=== PATIENT | male | born 1970 | race Caucasian/White ===

== ENCOUNTER 2017-02-11 12:22 | Inpatient (IN) | payer OTHER ==
[2017-02-11 16:13] VITALS: BMI 20.3
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
[2017-02-11] MEDS ORDERED: MAG HYDROX/AL HYDROX/SIMETH 30 ML UNIT-DOSE CUP PO PRN (16:49)
[2017-02-11] MEDS ORDERED: hydrOXYzine PAMOATE 50 MG CAPSULE (FP) PO PRN (16:49)
[2017-02-11] MEDS ORDERED: guaiFENesin/D-METHORPHAN HB 10 ML UNIT-DOSE CUPS PO PRN (16:49)
[2017-02-11] MEDS ORDERED: MAGNESIUM HYDROX 2400MG/30ML ORAL SUSPENSION 30 ML CUP PO PRN (16:49)
[2017-02-11] MEDS ORDERED: IBUPROFEN 400 MG TABLET (FP) PO PRN (16:49)
[2017-02-11] MEDS ORDERED: MENTHOL/PHENOL 1 EACH UD MM PRN (16:49)
[2017-02-11] MEDS ORDERED: P-EPHED 60MG/TRIPROLIDI 2.5MG TABLET PO PRN (16:49)
[2017-02-11] MEDS ORDERED: LOPERAMIDE HCL 2 MG CAPSULE PO PRN (16:49)
[2017-02-11] MEDS ORDERED: NICOTINE POLACRILEX 2 MG GUM BC PRN (16:49)
[2017-02-11] MEDS ORDERED: ACETAMINOPHEN 325 MG TABLET (FP) PO PRN (16:49)
[2017-02-11] MEDS ORDERED: MAGNESIUM CITRATE 300 ML BOTTLE PO PRN (16:49)
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
[2017-02-11] MEDS ORDERED: LOPERAMIDE HCL 2 MG CAPSULE PO ONE (19:00)
[2017-02-11] MEDS ORDERED: diazePAM 5 MG TABLET PO ONE (19:00)
[2017-02-11] MEDS: NICOTINE 14 MG/24 HOURS TOPICAL PATCH TD SCH (19:17)
[2017-02-11] MEDS: THIAMINE HCL 100 MG TABLET (FP) PO SCH (22:16)
[2017-02-11] MEDS: traZODone HCL 100 MG TABLET (FP) PO SCH (22:16)
[2017-02-11] MEDS: levETIRAcetam 500 MG TABLET (FP) PO SCH (22:16)
[2017-02-11] MEDS: diazePAM 5 MG TABLET PO SCH (22:16)
[2017-02-11 22:45] LABS: URINE APPEARANCE CLEAR; URINE BILIRUBIN NEGATIVE (NEGATIVE); URINE BLOOD NEGATIVE (NEGATIVE); URINE COLOR LTYELLOW; URINE GLUCOSE (UA) NEGATIVE (NEGATIVE); URINE KETONE NEGATIVE (NEGATIVE); URINE NITRITE NEGATIVE (NEGATIVE); URINE PROTEIN NEGATIVE (NEGATIVE); URINE UROBILINOGEN NEGATIVE mg/dL (0.2-1.0)
[2017-02-12] MEDS: diazePAM 5 MG TABLET PO SCH ×3 (05:47→22:31)
--- NOTE | 2017-02-12 08:42 | CONSULT ---
[facility] Psychiatric Consult - Data Date of interview: 02/12/17 Admission source: [facility] Identifying data: This is 46 years old male with history of psychiatric hospitalizations, history of Bipolar disorder, intoxicated with: \Alcohol, Benzodiazeoins, Nicotine, hiustory of Cocaine abuse as well Substance Abuse History: Smoking history: Current every day smoker. Have you smoked in the past 12 months: Yes. Aproximately how many cigarettes per day: 20. Hx Chewing Tobacco Use: No. Initiated information on smoking cessation: Yes. 'Breaking Loose' booklet given: 02/11/17. - Substance & Tx. History. Hx Alcohol Use: Yes. Substance Use Type: Alcohol. Hx Substance Use Treatment: Yes ([facility] - Substances Abused. Alcohol. Route: Oral. Frequency: Daily. Amount used: 8 25oz malt liquor. Age of first use: 22. Date of Last Use: 02/10/17 Medical History: Falk;s Palsy history Psychiatric History: Patient reports history of Bop[ilar Disorder, unclear psychiatric admission 1-2 weeks ago at [facility] , reports taking prior to admsision: Trazodone 100mg po qhs. Zoloft 50mg poqd. [place]ote 250mg po bid Physical/Sexual Abuse/Trauma History: Denies Additional Comment: Trazodone 100mg po qhs. Zoloft 50mg poqd. [place]ote 250mg po bid Mental Status Exam - Mental Status Exam Alert and Oriented to: Person Cognitive Function: Fair Patient Appearance: Unkempt Mood: Sad Affect: Flat Patient Behavior: Sedated Speech Pattern: Delayed Voice Loudness: Mildly Soft/Quiet Thought Process: Circumstantial Thought Disorder: Being Controlled Hallucinations: Denies Suicidal Ideation: Denies Homicidal Ideation: Denies Insight/Judgement: Fair Sleep: Difficulty falling asleep Appetite: Fair Muscle strength/Tone: Mild Hypotonicity Gait/Station: Shuffling Additional Comments: Trazodone 100mg po qhs. Zoloft 50mg poqd. [place]ote 250mg po bid Psychiatric Findings - Problem List ([place] 1, 2,3) (1) Alcohol dependence with uncomplicated withdrawal Current Visit: No Status: Acute (2) Cocaine dependence Current Visit: No Status: Acute Qualifiers: Substance use status: in remission Qualified Code(s): F14.21 - Cocaine dependence, in remission (3) Drug-induced mood disorder Current Visit: No Status: Acute (4) Marijuana abuse Current Visit: No Status: Acute (5) Bipolar disorder Current Visit: No Status: Chronic (6) Cocaine abuse Current Visit: No Status: Chronic (7) Cannabis dependence, uncomplicated Current Visit: No Status: Inactive - Initial Treatment Plan Initial Treatment Plan: Trazodone 100mg po qhs. Zoloft 50mg poqd. [place]ote 250mg po bid
[2017-02-12 10:06] LABS: BASOPHIL 0.3 % (0-2.0); MCH 33.1 pg (25.7-33.7); WHITE BLOOD COUNT 7.5 K/mm3 (4.0-10.0)
[2017-02-12 10:09] LABS: EOSINOPHIL 3.5 % (0-4.5); MEAN CELL VOLUME 100.4 fl (80-96); MEAN PLT VOLUME 8.1 fl (7.5-11.1); PLATELET COUNT 335 K/MM3 (134-434); RDW 12.9 % (11.9-15.9)
[2017-02-12] MEDS: NICOTINE 14 MG/24 HOURS TOPICAL PATCH TD SCH (10:44)
[2017-02-12] MEDS: DIVALPROEX SODIUM 250 MG TABLET E.C. (FP) PO SCH ×2 (10:44→22:31)
[2017-02-12] MEDS: levETIRAcetam 500 MG TABLET (FP) PO SCH ×2 (10:44→22:31)
[2017-02-12] MEDS: PRENATAL VITAMINS W/ FOLIC ACID TABLET (FP) PO SCH (10:44)
[2017-02-12 11:40] LABS: ALBUMIN 2.8 g/dl (3.4-5.0); ALK PHOS 53 U/L (45-117); ANION GAP 10 (8-16); BILIRUBIN,TOTAL 0.4 mg/dL (0.2-1.0); CALCIUM 8.5 mg/dL (8.5-10.1); CO2 29 mmol/L (21-32); CREATININE 0.7 mg/dL (0.7-1.3); GLUCOSE,RANDOM 93 mg/dL (74-106); SGOT/AST 10 U/L (15-37); SGPT/ALT 21 U/L (12-78); TOT PROT 5.7 g/dl (6.4-8.2)
[2017-02-12] MEDS: SERTRALINE HCL 50 MG TABLET (FP) PO SCH (11:43)
[2017-02-12 11:45] LABS: URINE LEUK ESTERASE Negative (NEGATIVE)
[2017-02-12] MEDS ORDERED: PNEUMOC 13-VAL CONJ-DIP CRM/PF 0.5 ML DISP.SYRIN IM ONE (12:00)
[2017-02-12] MEDS ORDERED: PNEUMOCOCCAL 23 VACCINE 0.5 ML VIAL IM ONE (12:00)
[2017-02-12] MEDS ORDERED: FLU VACCINE QUAD 60 MCG/0.5 ML (MDV 17-18) IM ONE (12:00)
[2017-02-12 12:52] LABS: HIV 1 & 2 AB NEGATIVE; HIV 1 AGp24 NEGATIVE
--- NOTE | 2017-02-12 13:10 | PN ---
[facility] CIWA - CIWA Score Nausea/Vomitin-No Nausea/No Vomiting Muscle Tremors: 3 Anxiety: 4-Mod. Anxious/Guarded Agitation: 3 Paroxysmal Sweats: 3 Orientation: 0-Oriented Tacttile Disturbances: 2-Mild Itch/Numbness/Burn Auditory Disturbances: 0-None Visual Disturbances: 3-Moderate Sensitivity Headache: 0-None Present CIWA-Ar Total Score: 18 S Progress Note (SOAP) Subjective: Tremors, Anxious, Sweating. Objective: PT. A & O X 3, OBSERVED AMBULATING ON UNIT. NO ACUTE DISTRESS. 02/12/17 13:08 Vital Signs Temperature 99.4 F 02/12/17 11:08 Pulse Rate 83 02/12/17 11:08 Respiratory Rate 18 02/12/17 11:08 Blood Pressure 106/66 02/12/17 11:08 O2 Sat by Pulse Oximetry (%) Laboratory Tests 02/11/17 02/12/17 02/12/17 21:00 07:00 07:00 WBC RBC Hgb Hct MCV MCH MCHC RDW Plt Count MPV Neutrophils % Lymphocytes % Monocytes % Eosinophils % Basophils % Sodium 141 Potassium 3.9 Chloride 102 Carbon Dioxide 29 Anion Gap 10 BUN 15 Creatinine 0.7 Creat Clearance w eGFR > 60 Random Glucose 93 Calcium 8.5 Total Bilirubin 0.4 AST 10 L D ALT 21 Alkaline Phosphatase 53 Total Protein 5.7 L Albumin 2.8 L Urine Color Ltyellow Urine Appearance Clear Urine pH 6.0 Ur Specific [place] 1.014 Urine Protein Negative Urine Glucose (UA) Negative Urine Ketones Negative Urine Blood Negative Urine Nitrite Negative Urine Bilirubin Negative Urine Urobilinogen Negative Ur Leukocyte Esterase Negative HIV 1&2 Antibody Screen Negative HIV P24 Antigen Negative 02/12/17 07:00 WBC 7.5 RBC 3.88 L Hgb 12.9 Hct 39.0 MCV 100.4 H MCH 33.1 MCHC 33.0 RDW 12.9 Plt Count 335 D MPV 8.1 D Neutrophils % 43.0 Lymphocytes % 40.7 H Monocytes % 12.5 H Eosinophils % 3.5 Basophils % 0.3 Sodium Potassium Chloride Carbon Dioxide Anion Gap BUN Creatinine Creat Clearance w eGFR Random Glucose Calcium Total Bilirubin AST ALT Alkaline Phosphatase Total Protein Albumin Urine Color Urine Appearance Urine pH Ur Specific [place] Urine Protein Urine Glucose (UA) Urine Ketones Urine Blood Urine Nitrite Urine Bilirubin Urine Urobilinogen Ur Leukocyte Esterase HIV 1&2 Antibody Screen HIV P24 Antigen LABS NOTED. RESULTS OF RPR, CXR, AND SPUTUM CULTURE PENDING. 02/12/17 13:09 Assessment: 02/12/17 13:09 WITHDRAWAL SYMPTOMS. Plan: CONTINUE DETOX.
--- NOTE | 2017-02-12 16:39 | EKG ---
Test Reason : Blood Pressure : / mmHG Vent. Rate : 064 BPM Atrial Rate : 064 BPM P-R Int : 170 ms QRS Dur : 092 ms QT Int : 424 ms P-R-T Axes : 077 077 078 degrees QTc Int : 437 ms NORMAL SINUS RHYTHM NORMAL ECG NO PREVIOUS ECGS AVAILABLE Confirmed by MARISA EDMOND MD ([id number]) on 02/12/2017 4:39:31 PM Referred By: Confirmed By:MARISA EDMOND MD
[2017-02-12] MEDS: diazePAM 5 MG TABLET PO PRN (17:10)
[2017-02-12] MEDS: traZODone HCL 100 MG TABLET (FP) PO SCH (22:31)
[2017-02-12] MEDS: THIAMINE HCL 100 MG TABLET (FP) PO SCH (22:31)
[2017-02-13] MEDS: SERTRALINE HCL 50 MG TABLET (FP) PO SCH (10:52)
[2017-02-13] MEDS: PRENATAL VITAMINS W/ FOLIC ACID TABLET (FP) PO SCH (10:52)
[2017-02-13] MEDS: NICOTINE 14 MG/24 HOURS TOPICAL PATCH TD SCH (10:52)
[2017-02-13] MEDS: levETIRAcetam 500 MG TABLET (FP) PO SCH ×2 (10:52→22:08)
[2017-02-13] MEDS: DIVALPROEX SODIUM 250 MG TABLET E.C. (FP) PO SCH ×2 (10:52→22:09)
[2017-02-13] MEDS: diazePAM 5 MG TABLET PO SCH ×2 (10:54→22:08)
--- NOTE | 2017-02-13 12:44 | PN ---
[facility] CIWA - CIWA Score Nausea/Vomitin-No Nausea/No Vomiting Muscle Tremors: 4-Moderate,w/Arms Extend Anxiety: 4-Mod. Anxious/Guarded Agitation: 3 Paroxysmal Sweats: 3 Orientation: 0-Oriented Tacttile Disturbances: 2-Mild Itch/Numbness/Burn Auditory Disturbances: 0-None Visual Disturbances: 2-Mild Sensitivity Headache: 0-None Present CIWA-Ar Total Score: 18 [facility] Progress Note (SOAP) Subjective: Tremors, Sweating, Anxious. Objective: PT. A & O X 3, OBSERVED AMBULATING ON UNIT. NO ACUTE DISTRESS. PATIENT DENIES CHEST PAIN AND SOB. RHONCHI AUSCULTATED IN LUNGS BILATERALLY. 02/13/17 12:43 Vital Signs Temperature 97.7 F 02/13/17 09:42 Pulse Rate 76 02/13/17 09:42 Respiratory Rate 18 02/13/17 09:42 Blood Pressure 81/54 02/13/17 11:10 O2 Sat by Pulse Oximetry (%) Laboratory Tests 02/11/17 02/12/17 02/12/17 21:00 07:00 07:00 WBC RBC Hgb Hct MCV MCH MCHC RDW Plt Count MPV Neutrophils % Lymphocytes % Monocytes % Eosinophils % Basophils % Sodium 141 Potassium 3.9 Chloride 102 Carbon Dioxide 29 Anion Gap 10 BUN 15 Creatinine 0.7 Creat Clearance w eGFR > 60 Random Glucose 93 Calcium 8.5 Total Bilirubin 0.4 AST 10 L D ALT 21 Alkaline Phosphatase 53 Total Protein 5.7 L Albumin 2.8 L Urine Color Ltyellow Urine Appearance Clear Urine pH 6.0 Ur Specific [place] 1.014 Urine Protein Negative Urine Glucose (UA) Negative Urine Ketones Negative Urine Blood Negative Urine Nitrite Negative Urine Bilirubin Negative Urine Urobilinogen Negative Ur Leukocyte Esterase Negative RPR Titer HIV 1&2 Antibody Screen Negative HIV P24 Antigen Negative 02/12/17 02/12/17 07:00 07:00 WBC 7.5 RBC 3.88 L Hgb 12.9 Hct 39.0 MCV 100.4 H MCH 33.1 MCHC 33.0 RDW 12.9 Plt Count 335 D MPV 8.1 D Neutrophils % 43.0 Lymphocytes % 40.7 H Monocytes % 12.5 H Eosinophils % 3.5 Basophils % 0.3 Sodium Potassium Chloride Carbon Dioxide Anion Gap BUN Creatinine Creat Clearance w eGFR Random Glucose Calcium Total Bilirubin AST ALT Alkaline Phosphatase Total Protein Albumin Urine Color Urine Appearance Urine pH Ur Specific [place] Urine Protein Urine Glucose (UA) Urine Ketones Urine Blood Urine Nitrite Urine Bilirubin Urine Urobilinogen Ur Leukocyte Esterase RPR Titer Nonreactive HIV 1&2 Antibody Screen HIV P24 Antigen LABS NOTED. RESAULTS OF SPUTUM CULTURE PENDING. RESULT OF VALPROIC ACID LEVEL PENDING. 02/13/17 12:45 Assessment: 02/13/17 12:44 WITHDRAWAL SYMPTOMS. Plan: WITHDRAWAL SYMPTOMS. INCREASE DAILY PO FLUID INTAKE.
[2017-02-13] MEDS: diazePAM 5 MG TABLET PO PRN (13:05)
[2017-02-13] MEDS ORDERED: ALBUTEROL SO4 2.5/IPRATROPIUM 0.5 INH SOL 3 ML VIAL.NEB. NEB PRN (14:55)
[2017-02-13] MEDS: THIAMINE HCL 100 MG TABLET (FP) PO SCH (22:08)
[2017-02-13] MEDS: traZODone HCL 100 MG TABLET (FP) PO SCH (22:09)
[2017-02-14] MEDS: diazePAM 5 MG TABLET PO SCH ×2 (10:30→22:13)
[2017-02-14] MEDS: levETIRAcetam 500 MG TABLET (FP) PO SCH ×2 (10:30→22:13)
[2017-02-14] MEDS: PRENATAL VITAMINS W/ FOLIC ACID TABLET (FP) PO SCH (10:30)
[2017-02-14] MEDS: DIVALPROEX SODIUM 250 MG TABLET E.C. (FP) PO SCH ×2 (10:31→22:13)
[2017-02-14] MEDS: NICOTINE 14 MG/24 HOURS TOPICAL PATCH TD SCH (10:31)
[2017-02-14] MEDS: SERTRALINE HCL 50 MG TABLET (FP) PO SCH (10:31)
--- NOTE | 2017-02-14 16:25 | PN ---
[facility] Progress Note (SOAP) Subjective: Body Aches, Stomach Cramping, Tremors, Sweating. Objective: PT. A & O X 3, OBSERVED AMBULATING ON UNIT. NO ACUTE DISTRESS. PT. DENIES CHEST PAIN AND SOB. 02/14/17 16:23 Vital Signs Temperature 98.1 F 02/14/17 13:14 Pulse Rate 78 02/14/17 13:14 Respiratory Rate 18 02/14/17 13:14 Blood Pressure 118/53 02/14/17 13:14 O2 Sat by Pulse Oximetry (%) Laboratory Tests 02/11/17 02/12/17 02/12/17 21:00 07:00 07:00 WBC RBC Hgb Hct MCV MCH MCHC RDW Plt Count MPV Neutrophils % Lymphocytes % Monocytes % Eosinophils % Basophils % Sodium 141 Potassium 3.9 Chloride 102 Carbon Dioxide 29 Anion Gap 10 BUN 15 Creatinine 0.7 Creat Clearance w eGFR > 60 Random Glucose 93 Calcium 8.5 Total Bilirubin 0.4 AST 10 L D ALT 21 Alkaline Phosphatase 53 Total Protein 5.7 L Albumin 2.8 L Urine Color Ltyellow Urine Appearance Clear Urine pH 6.0 Ur Specific [place] 1.014 Urine Protein Negative Urine Glucose (UA) Negative Urine Ketones Negative Urine Blood Negative Urine Nitrite Negative Urine Bilirubin Negative Urine Urobilinogen Negative Ur Leukocyte Esterase Negative Valproic Acid RPR Titer HIV 1&2 Antibody Screen Negative HIV P24 Antigen Negative 02/12/17 02/12/17 02/13/17 07:00 07:00 09:15 WBC 7.5 RBC 3.88 L Hgb 12.9 Hct 39.0 MCV 100.4 H MCH 33.1 MCHC 33.0 RDW 12.9 Plt Count 335 D MPV 8.1 D Neutrophils % 43.0 Lymphocytes % 40.7 H Monocytes % 12.5 H Eosinophils % 3.5 Basophils % 0.3 Sodium Potassium Chloride Carbon Dioxide Anion Gap BUN Creatinine Creat Clearance w eGFR Random Glucose Calcium Total Bilirubin AST ALT Alkaline Phosphatase Total Protein Albumin Urine Color Urine Appearance Urine pH Ur Specific [place] Urine Protein Urine Glucose (UA) Urine Ketones Urine Blood Urine Nitrite Urine Bilirubin Urine Urobilinogen Ur Leukocyte Esterase Valproic Acid 18.849 L RPR Titer Nonreactive HIV 1&2 Antibody Screen HIV P24 Antigen LABS NOTED. RESULT OF SPUTUM CULTURE NOTED. 02/14/17 16:23 Assessment: 02/14/17 16:23 WITHDRAWAL SYMPTOMS. Plan: CONTINUE DETOX. INCREASE DAILY PO FLUID INTAKE.
[2017-02-14] MEDS: THIAMINE HCL 100 MG TABLET (FP) PO SCH (22:12)
[2017-02-14] MEDS: traZODone HCL 100 MG TABLET (FP) PO SCH (22:13)
[2017-02-15] MEDS ORDERED: diazePAM 5 MG TABLET PO SCH (10:00)
[2017-02-15] MEDS: NICOTINE 14 MG/24 HOURS TOPICAL PATCH TD SCH (10:11)
[2017-02-15] MEDS: DIVALPROEX SODIUM 250 MG TABLET E.C. (FP) PO SCH ×2 (10:11→22:12)
[2017-02-15] MEDS: PRENATAL VITAMINS W/ FOLIC ACID TABLET (FP) PO SCH (10:11)
[2017-02-15] MEDS: levETIRAcetam 500 MG TABLET (FP) PO SCH ×2 (10:11→22:12)
[2017-02-15] MEDS: SERTRALINE HCL 50 MG TABLET (FP) PO SCH (10:11)
--- NOTE | 2017-02-15 14:27 | PN ---
BHS Progress Note (SOAP) Subjective: Sweating, diarrhea, tremor Objective: 02/15/17 14:24 Last Vital Signs Temp Pulse Resp BP Pulse Ox 97.0 F L 80 18 90/53 02/15/17 13:46 02/15/17 13:46 02/15/17 13:46 02/15/17 13:46 Noted with hypotension (b/p: 90/53) Laboratory Tests 02/11/17 02/12/17 02/12/17 21:00 07:00 07:00 WBC RBC Hgb Hct MCV MCH MCHC RDW Plt Count MPV Neutrophils % Lymphocytes % Monocytes % Eosinophils % Basophils % Sodium 141 Potassium 3.9 Chloride 102 Carbon Dioxide 29 Anion Gap 10 BUN 15 Creatinine 0.7 Creat Clearance w eGFR > 60 Random Glucose 93 Calcium 8.5 Total Bilirubin 0.4 AST 10 L D ALT 21 Alkaline Phosphatase 53 Total Protein 5.7 L Albumin 2.8 L Urine Color Ltyellow Urine Appearance Clear Urine pH 6.0 Ur Specific [place] 1.014 Urine Protein Negative Urine Glucose (UA) Negative Urine Ketones Negative Urine Blood Negative Urine Nitrite Negative Urine Bilirubin Negative Urine Urobilinogen Negative Ur Leukocyte Esterase Negative Valproic Acid RPR Titer HIV 1&2 Antibody Screen Negative HIV P24 Antigen Negative 02/12/17 02/12/17 02/13/17 07:00 07:00 09:15 WBC 7.5 RBC 3.88 L Hgb 12.9 Hct 39.0 MCV 100.4 H MCH 33.1 MCHC 33.0 RDW 12.9 Plt Count 335 D MPV 8.1 D Neutrophils % 43.0 Lymphocytes % 40.7 H Monocytes % 12.5 H Eosinophils % 3.5 Basophils % 0.3 Sodium Potassium Chloride Carbon Dioxide Anion Gap BUN Creatinine Creat Clearance w eGFR Random Glucose Calcium Total Bilirubin AST ALT Alkaline Phosphatase Total Protein Albumin Urine Color Urine Appearance Urine pH Ur Specific [place] Urine Protein Urine Glucose (UA) Urine Ketones Urine Blood Urine Nitrite Urine Bilirubin Urine Urobilinogen Ur Leukocyte Esterase Valproic Acid 18.849 L RPR Titer Nonreactive HIV 1&2 Antibody Screen HIV P24 Antigen Labs noted Assessment: 02/15/17 14:25 Withdrawal symptoms Noted with hypotension Plan: Continue detox Hypotension: asymptomatic, encouraged to drink lots of water
[2017-02-15] MEDS: THIAMINE HCL 100 MG TABLET (FP) PO SCH (22:12)
[2017-02-15] MEDS: traZODone HCL 100 MG TABLET (FP) PO SCH (22:12)
--- NOTE | 2017-02-16 08:51 | DS ---
[facility] Detox Discharge Summary Admission Date: 02/11/17 Discharge Date: 02/16/17 - History Present History: Alcohol Dependence, Cocaine Dependence Additional Comments: going to rehab today at [facility]; after detox Pertinent Past History: anxiety, insomnia, depression, nicotine dependence - Physical Exam Results Vital Signs: Vital Signs Temperature 97.9 F 02/16/17 06:08 Pulse Rate 60 02/16/17 06:08 Respiratory Rate 18 02/16/17 06:08 Blood Pressure 85/51 02/16/17 06:08 O2 Sat by Pulse Oximetry (%) Laboratory Tests 02/11/17 02/12/17 02/12/17 21:00 07:00 07:00 WBC RBC Hgb Hct MCV MCH MCHC RDW Plt Count MPV Neutrophils % Lymphocytes % Monocytes % Eosinophils % Basophils % Sodium 141 Potassium 3.9 Chloride 102 Carbon Dioxide 29 Anion Gap 10 BUN 15 Creatinine 0.7 Creat Clearance w eGFR > 60 Random Glucose 93 Calcium 8.5 Total Bilirubin 0.4 AST 10 L D ALT 21 Alkaline Phosphatase 53 Total Protein 5.7 L Albumin 2.8 L Urine Color Ltyellow Urine Appearance Clear Urine pH 6.0 Ur Specific [place] 1.014 Urine Protein Negative Urine Glucose (UA) Negative Urine Ketones Negative Urine Blood Negative Urine Nitrite Negative Urine Bilirubin Negative Urine Urobilinogen Negative Ur Leukocyte Esterase Negative Valproic Acid RPR Titer HIV 1&2 Antibody Screen Negative HIV P24 Antigen Negative 02/12/17 02/12/17 02/13/17 07:00 07:00 09:15 WBC 7.5 RBC 3.88 L Hgb 12.9 Hct 39.0 MCV 100.4 H MCH 33.1 MCHC 33.0 RDW 12.9 Plt Count 335 D MPV 8.1 D Neutrophils % 43.0 Lymphocytes % 40.7 H Monocytes % 12.5 H Eosinophils % 3.5 Basophils % 0.3 Sodium Potassium Chloride Carbon Dioxide Anion Gap BUN Creatinine Creat Clearance w eGFR Random Glucose Calcium Total Bilirubin AST ALT Alkaline Phosphatase Total Protein Albumin Urine Color Urine Appearance Urine pH Ur Specific [place] Urine Protein Urine Glucose (UA) Urine Ketones Urine Blood Urine Nitrite Urine Bilirubin Urine Urobilinogen Ur Leukocyte Esterase Valproic Acid 18.849 L RPR Titer Nonreactive HIV 1&2 Antibody Screen HIV P24 Antigen Pertinent Admission Physical Exam Findings: withdrawal sx - Treatment Hospital Course: Detox Protocol Followed, Detoxed Safely, Responded well, Discharged Condition Good, Rehab Referral Accepted - Medication Discharge Medications: Ambulatory Orders Divalproex [Depakote -] 250 mg PO BID #60 tablet.ec 02/12/17 Sertraline HCl [Zoloft -] 50 mg PO DAILY #30 tablet 02/12/17 Sertraline HCl [Zoloft -] 50 mg PO DAILY #30 tablet 02/12/17 Trazodone HCl [Desyrel -] 100 mg PO HS #30 tablet 02/12/17 - Diagnosis (1) Alcohol dependence with uncomplicated withdrawal Current Visit: Yes Status: Acute (2) Cocaine dependence Current Visit: Yes Status: Chronic Qualifiers: Substance use status: in remission Qualified Code(s): F14.21 - Cocaine dependence, in remission (3) Bipolar disorder Current Visit: Yes Status: Chronic Qualifiers: Active/Remission status: remission status unspecified Qualified Code(s): F31.9 - Bipolar disorder, unspecified (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
[2017-02-16] MEDS: levETIRAcetam 500 MG TABLET (FP) PO SCH ×2 (09:39→21:20)
[2017-02-16] MEDS: DIVALPROEX SODIUM 250 MG TABLET E.C. (FP) PO SCH ×2 (09:40→21:21)
[2017-02-16] MEDS: SERTRALINE HCL 50 MG TABLET (FP) PO SCH (09:40)
[2017-02-16] MEDS: NICOTINE 14 MG/24 HOURS TOPICAL PATCH TD SCH (09:54)
[2017-02-16] MEDS: PRENATAL VITAMINS W/ FOLIC ACID TABLET (FP) PO SCH (09:54)
--- NOTE | 2017-02-16 10:06 | HP ---
Psychiatrist Admission - Data Date of interview: 02/16/17 Admission source: 3N Identifying data: This is the second [facility] admission for this 46 years old male, father of 3 children, unemloyed on SSD, homeless Medical History: Significant for Falk's palsy, GERD, Scoliosis, history of pancreatitis, alcohol-related seizure and cellulitis/skin graft (left forearm/ elbow) in 2004. Smokes cigarettes 1ppd Psychiatric History: Reports that his first psychiatric contact was in 2009 at [facility] and he was diagnosed with Bipolar I Disorder. Reports one previous psychiatric hospitalization in September-October 2016 to [facility] in [facility] [place]. He was discharged on Depakote 250 mg po BID, Zoloft 50 mg po daily and Trazadone 100 mg po HS. Reports that he has not been compliant with psychiatric outpatient treatment since discharge. In the past he received psychiatric outpatient treatment at [facility]. Patient saw Dr Oreilly on 02/12/17 while in detox and was prescribed Zoloft 50 mg po daily, Depakote 250 mg po BID and Trazadone 100 mg po HS. Reports history of one suicidal sattempt by trying to jump in front of a moving in 2010. Reports feeling well but sleeping poorly without medication Physical/Sexual Abuse/Trauma History: No reported history of sexual abuse.Sressors:two of his children are affected with autism,separation from and children and homelessness. Additional Comment: Reports history one previous misdemear arrest on charges of possession of drug paraphernalia. No parole, no active case currently Vital Signs: Vital Signs - 24 hr 02/15/17 02/15/17 02/15/17 10:27 13:46 17:34 Temperature 97.2 F L 97.0 F L 96.6 F L Pulse Rate 75 80 69 Respiratory 18 18 16 Rate Blood Pressure 101/60 90/53 107/70 02/15/17 02/16/17 02/16/17 22:13 03:29 06:08 Temperature 97.1 F L 97.9 F Pulse Rate 64 60 Respiratory 16 18 18 Rate Blood Pressure 105/66 85/51 02/16/17 09:22 Temperature 96.4 F L Pulse Rate 72 Respiratory 18 Rate Blood Pressure 100/60 Allergies/Adverse Reactions: Allergies Allergy/AdvReac Type Severity Reaction Status Date / Time No Known Allergies Allergy Verified 02/16/17 10:51 Date of last physical exam: 02/11/17 Concur with the findings of this exam: Yes - Substance Abuse/Tx History Hx Alcohol Use: Yes Hx Substance Use: No Substance Use Type: Alcohol (Started drinking alcohol at age 22, consumes 8x 25oz daily. Last drank on 02/10/17) Hx Substance Use Treatment: Yes Mental Status Exam - Mental Status Exam Alert and Oriented to: Time, Place, Person Cognitive Function: Fair Patient Appearance: Well Groomed Mood: Hopeful, Euthymic Patient Behavior: Cooperative Speech Pattern: Clear Voice Loudness: Normal Thought Process: Intact, Goal Oriented Thought Disorder: Not Present Hallucinations: Denies Suicidal Ideation: Denies Insight/Judgement: Fair Sleep: Poorly Appetite: Good Muscle strength/Tone: Normal Gait/Station: Normal Psychiatric Findings - Problem List ([place] 1, 2,3) (1) Alcohol dependence Current Visit: Yes Status: Acute (2) Nicotine dependence Current Visit: Yes Status: Chronic (3) Bipolar disorder Current Visit: Yes Status: Chronic Qualifiers: Active/Remission status: remission status unspecified Qualified Code(s): F31.9 - Bipolar disorder, unspecified (4) Alcohol-induced sleep disorder Current Visit: Yes Status: Acute (5) Alcohol related seizure Current Visit: Yes Status: Chronic (6) 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 2) Repeat Valproic Acid serum level on . 3) Monitor progress
[2017-02-16] MEDS: THIAMINE HCL 100 MG TABLET (FP) PO SCH (21:20)
[2017-02-16] MEDS: traZODone HCL 100 MG TABLET (FP) PO SCH (21:20)
[2017-02-17] MEDS: PRENATAL VITAMINS W/ FOLIC ACID TABLET (FP) PO SCH (09:44)
[2017-02-17] MEDS: DIVALPROEX SODIUM 250 MG TABLET E.C. (FP) PO SCH ×2 (09:44→21:26)
[2017-02-17] MEDS: SERTRALINE HCL 50 MG TABLET (FP) PO SCH (09:44)
[2017-02-17] MEDS: NICOTINE 14 MG/24 HOURS TOPICAL PATCH TD SCH (09:44)
[2017-02-17] MEDS: levETIRAcetam 500 MG TABLET (FP) PO SCH ×2 (09:44→21:26)
[2017-02-17] MEDS: traZODone HCL 100 MG TABLET (FP) PO SCH (21:26)
[2017-02-17] MEDS: THIAMINE HCL 100 MG TABLET (FP) PO SCH (21:26)
[2017-02-18] MEDS: SERTRALINE HCL 50 MG TABLET (FP) PO SCH (09:44)
[2017-02-18] MEDS: PRENATAL VITAMINS W/ FOLIC ACID TABLET (FP) PO SCH (09:44)
[2017-02-18] MEDS: levETIRAcetam 500 MG TABLET (FP) PO SCH ×2 (09:44→21:13)
[2017-02-18] MEDS: DIVALPROEX SODIUM 250 MG TABLET E.C. (FP) PO SCH ×2 (09:44→21:13)
[2017-02-18] MEDS: NICOTINE 14 MG/24 HOURS TOPICAL PATCH TD SCH (09:44)
--- NOTE | 2017-02-18 13:31 | PN ---
[facility] Progress Note (SOAP) Subjective: c/o new rash inner thighgs both sides, non tender, itchy Objective: 02/18/17 13:31 Vital Signs - 8 hr 02/18/17 06:52 Temperature 97.5 F L Pulse Rate 52 L Respiratory 16 Rate Blood Pressure 101/50 Laboratory Tests 02/11/17 02/12/17 02/12/17 21:00 07:00 07:00 WBC RBC Hgb Hct MCV MCH MCHC RDW Plt Count MPV Neutrophils % Lymphocytes % Monocytes % Eosinophils % Basophils % Sodium 141 Potassium 3.9 Chloride 102 Carbon Dioxide 29 Anion Gap 10 BUN 15 Creatinine 0.7 Creat Clearance w eGFR > 60 Random Glucose 93 Calcium 8.5 Total Bilirubin 0.4 AST 10 L D ALT 21 Alkaline Phosphatase 53 Total Protein 5.7 L Albumin 2.8 L Urine Color Ltyellow Urine Appearance Clear Urine pH 6.0 Ur Specific [place] 1.014 Urine Protein Negative Urine Glucose (UA) Negative Urine Ketones Negative Urine Blood Negative Urine Nitrite Negative Urine Bilirubin Negative Urine Urobilinogen Negative Ur Leukocyte Esterase Negative Valproic Acid RPR Titer HIV 1&2 Antibody Screen Negative HIV P24 Antigen Negative 02/12/17 02/12/17 02/13/17 07:00 07:00 09:15 WBC 7.5 RBC 3.88 L Hgb 12.9 Hct 39.0 MCV 100.4 H MCH 33.1 MCHC 33.0 RDW 12.9 Plt Count 335 D MPV 8.1 D Neutrophils % 43.0 Lymphocytes % 40.7 H Monocytes % 12.5 H Eosinophils % 3.5 Basophils % 0.3 Sodium Potassium Chloride Carbon Dioxide Anion Gap BUN Creatinine Creat Clearance w eGFR Random Glucose Calcium Total Bilirubin AST ALT Alkaline Phosphatase Total Protein Albumin Urine Color Urine Appearance Urine pH Ur Specific [place] Urine Protein Urine Glucose (UA) Urine Ketones Urine Blood Urine Nitrite Urine Bilirubin Urine Urobilinogen Ur Leukocyte Esterase Valproic Acid 18.849 L RPR Titer Nonreactive HIV 1&2 Antibody Screen HIV P24 Antigen 02/17/17 07:30 WBC RBC Hgb Hct MCV MCH MCHC RDW Plt Count MPV Neutrophils % Lymphocytes % Monocytes % Eosinophils % Basophils % Sodium Potassium Chloride Carbon Dioxide Anion Gap BUN Creatinine Creat Clearance w eGFR Random Glucose Calcium Total Bilirubin AST ALT Alkaline Phosphatase Total Protein Albumin Urine Color Urine Appearance Urine pH Ur Specific [place] Urine Protein Urine Glucose (UA) Urine Ketones Urine Blood Urine Nitrite Urine Bilirubin Urine Urobilinogen Ur Leukocyte Esterase Valproic Acid 26.145 L RPR Titer HIV 1&2 Antibody Screen HIV P24 Antigen Assessment: 02/18/17 13:31 pruritic rash Plan: lotrisonde cream ordered
[2017-02-18] MEDS: CLOTRIMAZOLE/BETAMET DIPROP 15 GM TUBE TP SCH ×2 (14:55→21:12)
[2017-02-18] MEDS: traZODone HCL 100 MG TABLET (FP) PO SCH (21:13)
[2017-02-18] MEDS: THIAMINE HCL 100 MG TABLET (FP) PO SCH (21:13)
[2017-02-19] MEDS: PRENATAL VITAMINS W/ FOLIC ACID TABLET (FP) PO SCH (09:53)
[2017-02-19] MEDS: levETIRAcetam 500 MG TABLET (FP) PO SCH ×2 (09:53→21:26)
[2017-02-19] MEDS: NICOTINE 14 MG/24 HOURS TOPICAL PATCH TD SCH (09:53)
[2017-02-19] MEDS: SERTRALINE HCL 50 MG TABLET (FP) PO SCH (09:53)
[2017-02-19] MEDS: DIVALPROEX SODIUM 250 MG TABLET E.C. (FP) PO SCH ×2 (09:54→21:26)
[2017-02-19] MEDS: CLOTRIMAZOLE/BETAMET DIPROP 15 GM TUBE TP SCH ×2 (09:54→21:27)
[2017-02-19] MEDS: traZODone HCL 100 MG TABLET (FP) PO SCH (21:26)
[2017-02-19] MEDS: THIAMINE HCL 100 MG TABLET (FP) PO SCH (21:26)
[2017-02-20] MEDS: NICOTINE 14 MG/24 HOURS TOPICAL PATCH TD SCH (09:38)
[2017-02-20] MEDS: PRENATAL VITAMINS W/ FOLIC ACID TABLET (FP) PO SCH (09:38)
[2017-02-20] MEDS: SERTRALINE HCL 50 MG TABLET (FP) PO SCH (09:38)
[2017-02-20] MEDS: DIVALPROEX SODIUM 500 MG TABLET E.C. PO SCH ×2 (09:38→21:16)
[2017-02-20] MEDS: levETIRAcetam 500 MG TABLET (FP) PO SCH ×2 (09:38→21:16)
[2017-02-20] MEDS: CLOTRIMAZOLE/BETAMET DIPROP 15 GM TUBE TP SCH ×2 (09:38→21:15)
--- NOTE | 2017-02-20 10:14 | PN ---
Psychiatric Progress Note Vital Signs: Vital Signs Period Temp Pulse Resp BP Sys/Awad Pulse Ox Last 24 Hr 98.1 F 59 18 84/54 Date of Session: 02/20/17 Chief Complaint:: Insomnia/ Subtherapeutic Valproic Acid serum level HPI: Patient addressing Alcohol Dependence comorbid with Nicotine Dependence, Bipolar Disorder and Alcohol-induced Sleep Disorder ROS: Increase Trazadone dosage to 150 mg po HS and Depakote to 500 mg po BID Current Medications: Active Medications Generic Name Dose Route Start Last Admin Trade Name Freq PRN Reason Stop Dose Admin Acetaminophen 650 mg 02/11/17 16:49 Tylenol - PO Q4H PRN FEVER OR PAIN Al Hydroxide/Mg Hydroxide 30 ml 02/11/17 16:49 Mylanta Oral Suspension - PO Q6H PRN DYSPEPSIA Albuterol/Ipratropium 1 amp 02/13/17 14:55 02/14/17 16:39 Duoneb - NEB 1 amp Q6H PRN Administration SHORTNESS OF BREATH Clotrimazole 1 applic 02/18/17 13:59 02/20/17 09:38 Lotrisone Cream (Small Tube) TP 1 applic BID CHING Administration Divalproex Sodium 500 mg 02/20/17 10:00 02/20/17 09:38 Depakote - PO 500 mg BID CHING Administration Eucalyptus/Menthol/Phenol/Sorbitol 1 each 02/11/17 16:49 Cepastat Lozenge - MM Q4H PRN SORE THROAT Guaifenesin 10 ml 02/11/17 16:49 Robitussin Dm - PO Q6H PRN COUGH Hydroxyzine Pamoate 50 mg 02/11/17 16:49 Vistaril - PO Q4H PRN AGITATION Ibuprofen 400 mg 02/11/17 16:49 02/15/17 10:38 Motrin - PO 400 mg Q6H PRN Administration SEVERE PAIN Levetiracetam 500 mg 02/11/17 22:00 02/20/17 09:38 Keppra - PO 500 mg BID CHING Administration Loperamide HCl 4 mg 02/11/17 16:49 Imodium - PO Q6H PRN DIARRHEA Magnesium Citrate 300 ml 02/11/17 16:49 Citroma - PO Q48H PRN CONSTIPATION Magnesium Hydroxide 30 ml 02/11/17 16:49 Milk Of Magnesia - PO DAILY PRN CONSTIPATION Nicotine 14 mg 02/11/17 19:00 02/20/17 09:38 Nicoderm Patch - TD 14 mg DAILY CHING Administration Nicotine Polacrilex 2 mg 02/11/17 16:49 Nicorette Gum - BC Q2H PRN NICOTINE REPLACEMENT RX Multivit/Folic Acid/Iron 1 tab 02/12/17 10:00 02/20/17 09:38 Vitamins (Sjr) - PO 1 tab DAILY CHING Administration Pseudoephedrine/Triprolidine 1 combo 02/11/17 16:49 Actifed - PO TID PRN NASAL CONGESTION Sertraline HCl 50 mg 02/12/17 10:43 02/20/17 09:38 Zoloft - PO 50 mg DAILY CHING Administration Thiamine HCl 100 mg 02/11/17 22:00 02/19/17 21:26 Vitamin B1 - PO 100 mg HS CHING Administration Trazodone HCl 150 mg 02/20/17 22:00 Desyrel - PO HS CHING Current Side Effect: No Lab tests ordered: Yes Lab tests reviewed: Yes Provider note:: Patient reports experiencing difficulty to sleep. 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 Requests that Trazadone dosage be increased. He is also on Depakote 250 mg po BID with subtherapeutic serum levels done on 02/13/17 & 02/17 17 respectively 18.849 ug/ml & 26.145 ug/ml. Will increase Depakote to 500 mg po BID and repeat level on 02/25/17 Mental Status Exam - Mental Status Exam Alert and Oriented to: Time, Place, Person Cognitive Function: Fair Patient Appearance: Well Groomed Mood: Hopeful, Euthymic Affect: Appropriate Patient Behavior: Cooperative Speech Pattern: Clear Voice Loudness: Normal Thought Process: Intact, Goal Oriented Thought Disorder: Not Present Hallucinations: Denies Suicidal Ideation: Denies Homicidal Ideation: Denies Insight/Judgement: Fair Sleep: Poorly Appetite: Good Muscle strength/Tone: Normal Gait/Station: Normal Psychiatric Treatment Plan - Problem List (1) Alcohol dependence Current Visit: Yes (2) Nicotine dependence Current Visit: Yes (3) Bipolar disorder Current Visit: Yes Qualifiers: Active/Remission status: remission status unspecified Qualified Code(s): F31.9 - Bipolar disorder, unspecified (4) Alcohol-induced sleep disorder Current Visit: Yes (5) Alcohol related seizure Current Visit: Yes (6) Hx of Falk's palsy Current Visit: No Initial treatment plan: 1) Discontinue Trazadone and Depakote. 2) Start Trazadone 150 mg po HS and Depakote 500 mg po BID. 3) Repeat Valproic Acid serum level on 02/25/17. 4) Monitor progress
--- NOTE | 2017-02-20 12:33 | PN ---
S Progress Note Note: Pt. is referred to see me because of hypotension. Pt. is alert,coherent, oriented and denies feeling dizzy. Earlier today BP was 77/40 but now it is 113/64 Pulse 67. P : Do manual BP because electronic machines readings can be lower than actual. Give pt. a pitcher for h2o & juice
[2017-02-20] MEDS: THIAMINE HCL 100 MG TABLET (FP) PO SCH (21:16)
[2017-02-20] MEDS: traZODone HCL 50 MG TABLET (FP) PO SCH (21:16)
[2017-02-21] MEDS: CLOTRIMAZOLE/BETAMET DIPROP 15 GM TUBE TP SCH ×2 (09:27→21:32)
[2017-02-21] MEDS: NICOTINE 14 MG/24 HOURS TOPICAL PATCH TD SCH (09:27)
[2017-02-21] MEDS: DIVALPROEX SODIUM 500 MG TABLET E.C. PO SCH ×2 (09:27→21:31)
[2017-02-21] MEDS: SERTRALINE HCL 50 MG TABLET (FP) PO SCH (09:28)
[2017-02-21] MEDS: PRENATAL VITAMINS W/ FOLIC ACID TABLET (FP) PO SCH (09:28)
[2017-02-21] MEDS: levETIRAcetam 500 MG TABLET (FP) PO SCH ×2 (09:28→21:31)
[2017-02-21] MEDS: traZODone HCL 50 MG TABLET (FP) PO SCH (21:31)
[2017-02-21] MEDS: THIAMINE HCL 100 MG TABLET (FP) PO SCH (21:31)
[2017-02-22] MEDS: levETIRAcetam 500 MG TABLET (FP) PO SCH ×2 (09:37→21:19)
[2017-02-22] MEDS: NICOTINE 14 MG/24 HOURS TOPICAL PATCH TD SCH (09:37)
[2017-02-22] MEDS: PRENATAL VITAMINS W/ FOLIC ACID TABLET (FP) PO SCH (09:38)
[2017-02-22] MEDS: CLOTRIMAZOLE/BETAMET DIPROP 15 GM TUBE TP SCH ×2 (09:38→21:19)
[2017-02-22] MEDS: SERTRALINE HCL 50 MG TABLET (FP) PO SCH (09:38)
[2017-02-22] MEDS: DIVALPROEX SODIUM 500 MG TABLET E.C. PO SCH ×2 (09:38→21:18)
[2017-02-22] MEDS: THIAMINE HCL 100 MG TABLET (FP) PO SCH (21:19)
[2017-02-22] MEDS: traZODone HCL 50 MG TABLET (FP) PO SCH (21:19)
[2017-02-23] MEDS: levETIRAcetam 500 MG TABLET (FP) PO SCH ×2 (10:01→21:15)
[2017-02-23] MEDS: PRENATAL VITAMINS W/ FOLIC ACID TABLET (FP) PO SCH (10:01)
[2017-02-23] MEDS: SERTRALINE HCL 50 MG TABLET (FP) PO SCH (10:01)
[2017-02-23] MEDS: NICOTINE 14 MG/24 HOURS TOPICAL PATCH TD SCH (10:01)
[2017-02-23] MEDS: CLOTRIMAZOLE/BETAMET DIPROP 15 GM TUBE TP SCH ×2 (10:01→21:22)
[2017-02-23] MEDS: DIVALPROEX SODIUM 500 MG TABLET E.C. PO SCH ×2 (10:01→21:15)
[2017-02-23] MEDS ORDERED: ALBUTEROL SO4 2.5/IPRATROPIUM 0.5 INH SOL 3 ML VIAL.NEB. NEB PRN (15:57)
[2017-02-23] MEDS: THIAMINE HCL 100 MG TABLET (FP) PO SCH (21:14)
[2017-02-23] MEDS: traZODone HCL 50 MG TABLET (FP) PO SCH (21:15)
[2017-02-24] MEDS: CLOTRIMAZOLE/BETAMET DIPROP 15 GM TUBE TP SCH ×2 (09:34→21:25)
[2017-02-24] MEDS: SERTRALINE HCL 50 MG TABLET (FP) PO SCH (09:34)
[2017-02-24] MEDS: PRENATAL VITAMINS W/ FOLIC ACID TABLET (FP) PO SCH (09:34)
[2017-02-24] MEDS: NICOTINE 14 MG/24 HOURS TOPICAL PATCH TD SCH (09:34)
[2017-02-24] MEDS: levETIRAcetam 500 MG TABLET (FP) PO SCH ×2 (09:34→21:24)
[2017-02-24] MEDS: DIVALPROEX SODIUM 500 MG TABLET E.C. PO SCH ×2 (09:34→21:24)
[2017-02-24] MEDS: traZODone HCL 50 MG TABLET (FP) PO SCH (21:24)
[2017-02-24] MEDS: THIAMINE HCL 100 MG TABLET (FP) PO SCH (21:25)
[2017-02-25] MEDS: levETIRAcetam 500 MG TABLET (FP) PO SCH ×3 (09:45→21:20)
[2017-02-25] MEDS: SERTRALINE HCL 50 MG TABLET (FP) PO SCH (09:45)
[2017-02-25] MEDS: NICOTINE 14 MG/24 HOURS TOPICAL PATCH TD SCH (09:45)
[2017-02-25] MEDS: PRENATAL VITAMINS W/ FOLIC ACID TABLET (FP) PO SCH (09:45)
[2017-02-25] MEDS: DIVALPROEX SODIUM 500 MG TABLET E.C. PO SCH ×2 (09:45→21:20)
[2017-02-25] MEDS: CLOTRIMAZOLE/BETAMET DIPROP 15 GM TUBE TP SCH ×2 (09:45→21:22)
--- NOTE | 2017-02-25 10:23 | PN ---
S Progress Note Note: Patient c/o dry eyes fro bells palsy causing blurred vision requesting artificail tears Vital Signs - 8 hr 02/25/17 02/25/17 02/25/17 03:30 07:01 10:00 Temperature 97.7 F Pulse Rate 63 68 Respiratory 18 18 18 Rate Blood Pressure 90/62 108/71 Laboratory Tests 02/11/17 02/12/17 02/12/17 21:00 07:00 07:00 WBC RBC Hgb Hct MCV MCH MCHC RDW Plt Count MPV Neutrophils % Lymphocytes % Monocytes % Eosinophils % Basophils % Sodium 141 Potassium 3.9 Chloride 102 Carbon Dioxide 29 Anion Gap 10 BUN 15 Creatinine 0.7 Creat Clearance w eGFR > 60 Random Glucose 93 Calcium 8.5 Total Bilirubin 0.4 AST 10 L D ALT 21 Alkaline Phosphatase 53 Total Protein 5.7 L Albumin 2.8 L Urine Color Ltyellow Urine Appearance Clear Urine pH 6.0 Ur Specific [place] 1.014 Urine Protein Negative Urine Glucose (UA) Negative Urine Ketones Negative Urine Blood Negative Urine Nitrite Negative Urine Bilirubin Negative Urine Urobilinogen Negative Ur Leukocyte Esterase Negative Valproic Acid RPR Titer HIV 1&2 Antibody Screen Negative HIV P24 Antigen Negative 02/12/17 02/12/17 02/13/17 07:00 07:00 09:15 WBC 7.5 RBC 3.88 L Hgb 12.9 Hct 39.0 MCV 100.4 H MCH 33.1 MCHC 33.0 RDW 12.9 Plt Count 335 D MPV 8.1 D Neutrophils % 43.0 Lymphocytes % 40.7 H Monocytes % 12.5 H Eosinophils % 3.5 Basophils % 0.3 Sodium Potassium Chloride Carbon Dioxide Anion Gap BUN Creatinine Creat Clearance w eGFR Random Glucose Calcium Total Bilirubin AST ALT Alkaline Phosphatase Total Protein Albumin Urine Color Urine Appearance Urine pH Ur Specific [place] Urine Protein Urine Glucose (UA) Urine Ketones Urine Blood Urine Nitrite Urine Bilirubin Urine Urobilinogen Ur Leukocyte Esterase Valproic Acid 18.849 L RPR Titer Nonreactive HIV 1&2 Antibody Screen HIV P24 Antigen 02/17/17 07:30 WBC RBC Hgb Hct MCV MCH MCHC RDW Plt Count MPV Neutrophils % Lymphocytes % Monocytes % Eosinophils % Basophils % Sodium Potassium Chloride Carbon Dioxide Anion Gap BUN Creatinine Creat Clearance w eGFR Random Glucose Calcium Total Bilirubin AST ALT Alkaline Phosphatase Total Protein Albumin Urine Color Urine Appearance Urine pH Ur Specific [place] Urine Protein Urine Glucose (UA) Urine Ketones Urine Blood Urine Nitrite Urine Bilirubin Urine Urobilinogen Ur Leukocyte Esterase Valproic Acid 26.145 L RPR Titer HIV 1&2 Antibody Screen HIV P24 Antigen bells palsy, dry esyes, labwork reviewed artifical tears ordered
[2017-02-25] MEDS ORDERED: ARTIFICIAL TEARS (POLYVINYL ALCOHOL 1.4%) OPTH DROPS OU ONE (10:33)
[2017-02-25] MEDS: THIAMINE HCL 100 MG TABLET (FP) PO SCH (21:20)
[2017-02-25] MEDS: traZODone HCL 50 MG TABLET (FP) PO SCH (21:20)
[2017-02-26] MEDS: PRENATAL VITAMINS W/ FOLIC ACID TABLET (FP) PO SCH (09:26)
[2017-02-26] MEDS: NICOTINE 14 MG/24 HOURS TOPICAL PATCH TD SCH (09:26)
[2017-02-26] MEDS: levETIRAcetam 500 MG TABLET (FP) PO SCH ×2 (09:26→21:19)
[2017-02-26] MEDS: DIVALPROEX SODIUM 500 MG TABLET E.C. PO SCH ×2 (09:26→21:19)
[2017-02-26] MEDS: SERTRALINE HCL 50 MG TABLET (FP) PO SCH (09:26)
[2017-02-26] MEDS: CLOTRIMAZOLE/BETAMET DIPROP 15 GM TUBE TP SCH ×2 (09:26→22:00)
[2017-02-26] MEDS: THIAMINE HCL 100 MG TABLET (FP) PO SCH (21:18)
[2017-02-26] MEDS: traZODone HCL 50 MG TABLET (FP) PO SCH (21:18)
[2017-02-27] MEDS: DIVALPROEX SODIUM 500 MG TABLET E.C. PO SCH ×2 (09:43→21:28)
[2017-02-27] MEDS: CLOTRIMAZOLE/BETAMET DIPROP 15 GM TUBE TP SCH ×2 (09:43→21:29)
[2017-02-27] MEDS: levETIRAcetam 500 MG TABLET (FP) PO SCH ×2 (09:43→21:28)
[2017-02-27] MEDS: SERTRALINE HCL 50 MG TABLET (FP) PO SCH (09:43)
[2017-02-27] MEDS: PRENATAL VITAMINS W/ FOLIC ACID TABLET (FP) PO SCH (09:43)
[2017-02-27] MEDS: NICOTINE 14 MG/24 HOURS TOPICAL PATCH TD SCH (10:27)
[2017-02-27] MEDS: THIAMINE HCL 100 MG TABLET (FP) PO SCH (21:28)
[2017-02-27] MEDS: traZODone HCL 50 MG TABLET (FP) PO SCH (21:28)
[2017-02-28] MEDS: DIVALPROEX SODIUM 500 MG TABLET E.C. PO SCH ×2 (09:34→21:16)
[2017-02-28] MEDS: levETIRAcetam 500 MG TABLET (FP) PO SCH ×2 (09:34→21:16)
[2017-02-28] MEDS: PRENATAL VITAMINS W/ FOLIC ACID TABLET (FP) PO SCH (09:34)
[2017-02-28] MEDS: SERTRALINE HCL 50 MG TABLET (FP) PO SCH (09:34)
[2017-02-28] MEDS: NICOTINE 14 MG/24 HOURS TOPICAL PATCH TD SCH (09:34)
[2017-02-28] MEDS: CLOTRIMAZOLE/BETAMET DIPROP 15 GM TUBE TP SCH ×2 (09:34→21:18)
[2017-02-28] MEDS: THIAMINE HCL 100 MG TABLET (FP) PO SCH (21:16)
[2017-02-28] MEDS: traZODone HCL 50 MG TABLET (FP) PO SCH (21:16)
[2017-03-01] MEDS: PRENATAL VITAMINS W/ FOLIC ACID TABLET (FP) PO SCH (09:40)
[2017-03-01] MEDS: levETIRAcetam 500 MG TABLET (FP) PO SCH ×2 (09:40→21:13)
[2017-03-01] MEDS: SERTRALINE HCL 50 MG TABLET (FP) PO SCH (09:41)
[2017-03-01] MEDS: DIVALPROEX SODIUM 500 MG TABLET E.C. PO SCH ×2 (09:41→21:13)
[2017-03-01] MEDS: CLOTRIMAZOLE/BETAMET DIPROP 15 GM TUBE TP SCH ×2 (09:41→21:13)
[2017-03-01] MEDS: NICOTINE 14 MG/24 HOURS TOPICAL PATCH TD SCH (09:41)
[2017-03-01] MEDS: traZODone HCL 50 MG TABLET (FP) PO SCH (21:13)
[2017-03-01] MEDS: THIAMINE HCL 100 MG TABLET (FP) PO SCH (21:13)
[2017-03-02] MEDS: CLOTRIMAZOLE/BETAMET DIPROP 15 GM TUBE TP SCH ×2 (09:36→21:02)
[2017-03-02] MEDS: SERTRALINE HCL 50 MG TABLET (FP) PO SCH (09:36)
[2017-03-02] MEDS: NICOTINE 14 MG/24 HOURS TOPICAL PATCH TD SCH (09:36)
[2017-03-02] MEDS: levETIRAcetam 500 MG TABLET (FP) PO SCH ×2 (09:36→21:02)
[2017-03-02] MEDS: DIVALPROEX SODIUM 500 MG TABLET E.C. PO SCH ×2 (09:36→21:02)
[2017-03-02] MEDS: PRENATAL VITAMINS W/ FOLIC ACID TABLET (FP) PO SCH (09:36)
[2017-03-02] MEDS: traZODone HCL 50 MG TABLET (FP) PO SCH (21:02)
[2017-03-02] MEDS: THIAMINE HCL 100 MG TABLET (FP) PO SCH (21:02)
[2017-03-03] MEDS: PRENATAL VITAMINS W/ FOLIC ACID TABLET (FP) PO SCH (09:46)
[2017-03-03] MEDS: DIVALPROEX SODIUM 500 MG TABLET E.C. PO SCH ×2 (09:46→21:03)
[2017-03-03] MEDS: levETIRAcetam 500 MG TABLET (FP) PO SCH ×2 (09:46→21:03)
[2017-03-03] MEDS: SERTRALINE HCL 50 MG TABLET (FP) PO SCH (09:46)
[2017-03-03] MEDS: ARTIFICIAL TEARS (POLYVINYL ALCOHOL 1.4%) OPTH DROPS OU PRN (09:47)
[2017-03-03] MEDS: NICOTINE 14 MG/24 HOURS TOPICAL PATCH TD SCH (09:47)
[2017-03-03] MEDS: CLOTRIMAZOLE/BETAMET DIPROP 15 GM TUBE TP SCH ×2 (09:47→21:04)
[2017-03-03] MEDS: THIAMINE HCL 100 MG TABLET (FP) PO SCH (21:03)
[2017-03-03] MEDS: traZODone HCL 50 MG TABLET (FP) PO SCH (21:04)
[2017-03-04] MEDS: NICOTINE 14 MG/24 HOURS TOPICAL PATCH TD SCH (09:41)
[2017-03-04] MEDS: PRENATAL VITAMINS W/ FOLIC ACID TABLET (FP) PO SCH (09:41)
[2017-03-04] MEDS: SERTRALINE HCL 50 MG TABLET (FP) PO SCH (09:41)
[2017-03-04] MEDS: DIVALPROEX SODIUM 500 MG TABLET E.C. PO SCH ×2 (09:41→21:19)
[2017-03-04] MEDS: levETIRAcetam 500 MG TABLET (FP) PO SCH ×2 (09:41→21:19)
[2017-03-04] MEDS: CLOTRIMAZOLE/BETAMET DIPROP 15 GM TUBE TP SCH ×2 (09:42→21:20)
[2017-03-04] MEDS: ARTIFICIAL TEARS (POLYVINYL ALCOHOL 1.4%) OPTH DROPS OU PRN (09:42)
[2017-03-04] MEDS: THIAMINE HCL 100 MG TABLET (FP) PO SCH (21:19)
[2017-03-04] MEDS: traZODone HCL 50 MG TABLET (FP) PO SCH (21:19)
[2017-03-05] MEDS: DIVALPROEX SODIUM 500 MG TABLET E.C. PO SCH ×2 (09:31→21:17)
[2017-03-05] MEDS: levETIRAcetam 500 MG TABLET (FP) PO SCH ×2 (09:31→21:17)
[2017-03-05] MEDS: NICOTINE 14 MG/24 HOURS TOPICAL PATCH TD SCH (09:31)
[2017-03-05] MEDS: PRENATAL VITAMINS W/ FOLIC ACID TABLET (FP) PO SCH (09:31)
[2017-03-05] MEDS: SERTRALINE HCL 50 MG TABLET (FP) PO SCH (09:32)
[2017-03-05] MEDS: CLOTRIMAZOLE/BETAMET DIPROP 15 GM TUBE TP SCH ×2 (09:32→21:19)
[2017-03-05] MEDS: traZODone HCL 50 MG TABLET (FP) PO SCH (21:17)
[2017-03-05] MEDS: THIAMINE HCL 100 MG TABLET (FP) PO SCH (21:17)
[2017-03-06] MEDS: DIVALPROEX SODIUM 500 MG TABLET E.C. PO SCH ×2 (09:47→21:36)
[2017-03-06] MEDS: NICOTINE 14 MG/24 HOURS TOPICAL PATCH TD SCH (09:47)
[2017-03-06] MEDS: SERTRALINE HCL 50 MG TABLET (FP) PO SCH (09:47)
[2017-03-06] MEDS: PRENATAL VITAMINS W/ FOLIC ACID TABLET (FP) PO SCH (09:47)
[2017-03-06] MEDS: levETIRAcetam 500 MG TABLET (FP) PO SCH ×2 (09:47→21:36)
[2017-03-06] MEDS: CLOTRIMAZOLE/BETAMET DIPROP 15 GM TUBE TP SCH ×2 (09:48→21:37)
[2017-03-06] MEDS: traZODone HCL 50 MG TABLET (FP) PO SCH (21:36)
[2017-03-06] MEDS: THIAMINE HCL 100 MG TABLET (FP) PO SCH (21:36)
[2017-03-07] MEDS: CLOTRIMAZOLE/BETAMET DIPROP 15 GM TUBE TP SCH ×2 (09:24→23:37)
[2017-03-07] MEDS: SERTRALINE HCL 50 MG TABLET (FP) PO SCH (09:24)
[2017-03-07] MEDS: levETIRAcetam 500 MG TABLET (FP) PO SCH ×2 (09:24→21:21)
[2017-03-07] MEDS: NICOTINE 14 MG/24 HOURS TOPICAL PATCH TD SCH (09:24)
[2017-03-07] MEDS: PRENATAL VITAMINS W/ FOLIC ACID TABLET (FP) PO SCH (09:24)
[2017-03-07] MEDS: DIVALPROEX SODIUM 500 MG TABLET E.C. PO SCH ×2 (09:24→21:21)
[2017-03-07] MEDS: traZODone HCL 50 MG TABLET (FP) PO SCH (21:21)
[2017-03-07] MEDS: THIAMINE HCL 100 MG TABLET (FP) PO SCH (21:21)
[2017-03-08] MEDS: PRENATAL VITAMINS W/ FOLIC ACID TABLET (FP) PO SCH (09:41)
[2017-03-08] MEDS: NICOTINE 14 MG/24 HOURS TOPICAL PATCH TD SCH (09:41)
[2017-03-08] MEDS: levETIRAcetam 500 MG TABLET (FP) PO SCH ×2 (09:41→21:42)
[2017-03-08] MEDS: SERTRALINE HCL 50 MG TABLET (FP) PO SCH (09:41)
[2017-03-08] MEDS: DIVALPROEX SODIUM 500 MG TABLET E.C. PO SCH ×2 (09:41→21:42)
[2017-03-08] MEDS: CLOTRIMAZOLE/BETAMET DIPROP 15 GM TUBE TP SCH ×2 (09:41→21:42)
[2017-03-08] MEDS: THIAMINE HCL 100 MG TABLET (FP) PO SCH (21:42)
[2017-03-08] MEDS: traZODone HCL 50 MG TABLET (FP) PO SCH (21:42)
[2017-03-09] MEDS: PRENATAL VITAMINS W/ FOLIC ACID TABLET (FP) PO SCH (09:33)
[2017-03-09] MEDS: levETIRAcetam 500 MG TABLET (FP) PO SCH ×2 (09:33→21:35)
[2017-03-09] MEDS: NICOTINE 14 MG/24 HOURS TOPICAL PATCH TD SCH (09:33)
[2017-03-09] MEDS: SERTRALINE HCL 50 MG TABLET (FP) PO SCH (09:33)
[2017-03-09] MEDS: DIVALPROEX SODIUM 500 MG TABLET E.C. PO SCH ×2 (09:33→21:36)
[2017-03-09] MEDS: CLOTRIMAZOLE/BETAMET DIPROP 15 GM TUBE TP SCH ×2 (09:34→21:37)
[2017-03-09] MEDS: ARTIFICIAL TEARS (POLYVINYL ALCOHOL 1.4%) OPTH DROPS OU PRN (09:35)
[2017-03-09] MEDS: traZODone HCL 50 MG TABLET (FP) PO SCH (21:35)
[2017-03-09] MEDS: THIAMINE HCL 100 MG TABLET (FP) PO SCH (21:35)
[2017-03-10] MEDS: NICOTINE 14 MG/24 HOURS TOPICAL PATCH TD SCH (09:42)
[2017-03-10] MEDS: DIVALPROEX SODIUM 500 MG TABLET E.C. PO SCH ×2 (09:42→21:20)
[2017-03-10] MEDS: SERTRALINE HCL 50 MG TABLET (FP) PO SCH (09:42)
[2017-03-10] MEDS: PRENATAL VITAMINS W/ FOLIC ACID TABLET (FP) PO SCH (09:42)
[2017-03-10] MEDS: levETIRAcetam 500 MG TABLET (FP) PO SCH ×2 (09:42→21:20)
[2017-03-10] MEDS: CLOTRIMAZOLE/BETAMET DIPROP 15 GM TUBE TP SCH ×2 (09:42→21:21)
[2017-03-10] MEDS: traZODone HCL 50 MG TABLET (FP) PO SCH (21:20)
[2017-03-10] MEDS: THIAMINE HCL 100 MG TABLET (FP) PO SCH (21:20)
[2017-03-11] MEDS: NICOTINE 14 MG/24 HOURS TOPICAL PATCH TD SCH (09:48)
[2017-03-11] MEDS: levETIRAcetam 500 MG TABLET (FP) PO SCH ×2 (09:48→21:16)
[2017-03-11] MEDS: SERTRALINE HCL 50 MG TABLET (FP) PO SCH (09:48)
[2017-03-11] MEDS: DIVALPROEX SODIUM 500 MG TABLET E.C. PO SCH ×2 (09:48→21:16)
[2017-03-11] MEDS: PRENATAL VITAMINS W/ FOLIC ACID TABLET (FP) PO SCH (09:48)
[2017-03-11] MEDS: CLOTRIMAZOLE/BETAMET DIPROP 15 GM TUBE TP SCH ×2 (09:49→21:17)
--- NOTE | 2017-03-11 13:04 | PN ---
Psychiatric Progress Note Vital Signs: Vital Signs Period Temp Pulse Resp BP Sys/Awad Pulse Ox Last 24 Hr 97.4 F 60-68 16-18 87-88/45-50 Date of Session: 03/11/17 Chief Complaint:: Dizzyness HPI: Patient addressing Alcohol Dependence comorbid with Nicotine Dependence, Bipolar Disorder and Alcohol-induced Sleep Disorder ROS: Alcohol-related seizure, history of Falk's palsy Current Medications: Active Medications Generic Name Dose Route Start Last Admin Trade Name Freq PRN Reason Stop Dose Admin Acetaminophen 650 mg 02/11/17 16:49 Tylenol - PO Q4H PRN FEVER OR PAIN Al Hydroxide/Mg Hydroxide 30 ml 02/11/17 16:49 Mylanta Oral Suspension - PO Q6H PRN DYSPEPSIA Albuterol/Ipratropium 1 amp 02/23/17 15:57 Duoneb - NEB Q4H PRN SHORTNESS OF BREATH Artificial Tears 1 drop 03/02/17 10:49 03/09/17 09:35 Artificial Tears OU 1 drop BID PRN Administration DRY EYES Clotrimazole 1 applic 02/18/17 13:59 03/11/17 09:49 Lotrisone Cream (Small Tube) TP Not Given BID CHING Divalproex Sodium 500 mg 02/20/17 10:00 03/11/17 09:48 Depakote - PO 500 mg BID CHING Administration Eucalyptus/Menthol/Phenol/Sorbitol 1 each 02/11/17 16:49 Cepastat Lozenge - MM Q4H PRN SORE THROAT Guaifenesin 10 ml 02/11/17 16:49 Robitussin Dm - PO Q6H PRN COUGH Ibuprofen 400 mg 02/11/17 16:49 02/15/17 10:38 Motrin - PO 400 mg Q6H PRN Administration SEVERE PAIN Levetiracetam 500 mg 02/25/17 10:30 03/11/17 09:48 Keppra - PO 500 mg BID CHING Administration Loperamide HCl 4 mg 02/11/17 16:49 Imodium - PO Q6H PRN DIARRHEA Magnesium Citrate 300 ml 02/11/17 16:49 Citroma - PO Q48H PRN CONSTIPATION Magnesium Hydroxide 30 ml 02/11/17 16:49 Milk Of Magnesia - PO DAILY PRN CONSTIPATION Nicotine 14 mg 02/11/17 19:00 03/11/17 09:48 Nicoderm Patch - TD 14 mg DAILY CHING Administration Nicotine Polacrilex 2 mg 02/11/17 16:49 Nicorette Gum - BC Q2H PRN NICOTINE REPLACEMENT RX Multivit/Folic Acid/Iron 1 tab 02/12/17 10:00 03/11/17 09:48 Vitamins (Sjr) - PO 1 tab DAILY CHING Administration Pseudoephedrine/Triprolidine 1 combo 02/11/17 16:49 Actifed - PO TID PRN NASAL CONGESTION Sertraline HCl 50 mg 02/12/17 10:43 03/11/17 09:48 Zoloft - PO 50 mg DAILY CHING Administration Thiamine HCl 100 mg 02/11/17 22:00 03/10/17 21:20 Vitamin B1 - PO 100 mg HS CHING Administration Trazodone HCl 150 mg 02/20/17 22:00 03/10/17 21:20 Desyrel - PO 150 mg HS CHING Administration Medication(s) Change(s): 1) Discontinue Trazadone. 2) Start Belsomra 10 mg po HSprn for insomnia Current Side Effect: No Lab tests ordered: Yes Lab tests reviewed: Yes Provider note:: Patient reports feeling dizzy and blood pressure taken was very low. He is currently on Depakote 250 mg po BID, Trazadone 150 mg po HS, Zoloft 50 mg po daily and keppra 500 mg po BID. Total face to face time:: 25 Mental Status Exam - Mental Status Exam Alert and Oriented to: Time, Place, Person Cognitive Function: Fair Patient Appearance: Well Groomed Mood: Hopeful, Euthymic Affect: Appropriate Patient Behavior: Cooperative Speech Pattern: Clear Voice Loudness: Normal Thought Process: Intact, Goal Oriented Thought Disorder: Not Present Hallucinations: Denies Suicidal Ideation: Denies Homicidal Ideation: Denies Insight/Judgement: Fair Sleep: Fair Appetite: Good Muscle strength/Tone: Normal Gait/Station: Normal Psychiatric Treatment Plan - Problem List (1) Alcohol dependence Current Visit: Yes (2) Nicotine dependence Current Visit: Yes (3) Bipolar disorder Current Visit: Yes Qualifiers: Active/Remission status: remission status unspecified Qualified Code(s): F31.9 - Bipolar disorder, unspecified (4) Alcohol-induced sleep disorder Current Visit: Yes (5) Alcohol related seizure Current Visit: Yes (6) Hx of Falk's palsy Current Visit: No Initial treatment plan: 1) Discontinue Trazdone 150 mg po HS. 2) Start Belsomra 10 mg po HS prn for insomnia. 3) Monitor progress
[2017-03-11] MEDS: THIAMINE HCL 100 MG TABLET (FP) PO SCH (21:16)
[2017-03-11] MEDS: SUVOREXANT 10 MG TABLET PO PRN (21:17)
[2017-03-12] MEDS: NICOTINE 14 MG/24 HOURS TOPICAL PATCH TD SCH (09:44)
[2017-03-12] MEDS: DIVALPROEX SODIUM 500 MG TABLET E.C. PO SCH ×2 (09:44→21:28)
[2017-03-12] MEDS: levETIRAcetam 500 MG TABLET (FP) PO SCH ×2 (09:44→21:28)
[2017-03-12] MEDS: SERTRALINE HCL 50 MG TABLET (FP) PO SCH (09:44)
[2017-03-12] MEDS: PRENATAL VITAMINS W/ FOLIC ACID TABLET (FP) PO SCH (09:44)
[2017-03-12] MEDS: CLOTRIMAZOLE/BETAMET DIPROP 15 GM TUBE TP SCH ×2 (09:44→21:28)
[2017-03-12] MEDS: THIAMINE HCL 100 MG TABLET (FP) PO SCH (21:28)
[2017-03-12] MEDS: SUVOREXANT 10 MG TABLET PO PRN (21:29)
[2017-03-13] MEDS: levETIRAcetam 500 MG TABLET (FP) PO SCH ×2 (09:48→21:13)
[2017-03-13] MEDS: PRENATAL VITAMINS W/ FOLIC ACID TABLET (FP) PO SCH (09:48)
[2017-03-13] MEDS: DIVALPROEX SODIUM 500 MG TABLET E.C. PO SCH ×2 (09:48→21:13)
[2017-03-13] MEDS: NICOTINE 14 MG/24 HOURS TOPICAL PATCH TD SCH (09:49)
[2017-03-13] MEDS: CLOTRIMAZOLE/BETAMET DIPROP 15 GM TUBE TP SCH ×2 (09:49→21:13)
[2017-03-13] MEDS: SERTRALINE HCL 50 MG TABLET (FP) PO SCH (09:49)
--- NOTE | 2017-03-13 11:34 | PN ---
Psychiatric Progress Note Vital Signs: Vital Signs Period Temp Pulse Resp BP Sys/Awad Pulse Ox Last 24 Hr 97.9 F 66 16-18 105/66 Date of Session: 03/13/17 Chief Complaint:: Insomnia HPI: Patient addressing Alcohol Dependence comorbid with Nicotine Dependence, Bipolar Disorder and Alcohol-induced Sleep Disorder ROS: Alcohol-related seizure, history of Falk's palsy Current Medications: Active Medications Generic Name Dose Route Start Last Admin Trade Name Freq PRN Reason Stop Dose Admin Acetaminophen 650 mg 02/11/17 16:49 Tylenol - PO Q4H PRN FEVER OR PAIN Al Hydroxide/Mg Hydroxide 30 ml 02/11/17 16:49 Mylanta Oral Suspension - PO Q6H PRN DYSPEPSIA Albuterol/Ipratropium 1 amp 02/23/17 15:57 Duoneb - NEB Q4H PRN SHORTNESS OF BREATH Artificial Tears 1 drop 03/02/17 10:49 03/09/17 09:35 Artificial Tears OU 1 drop BID PRN Administration DRY EYES Clotrimazole 1 applic 02/18/17 13:59 03/13/17 09:49 Lotrisone Cream (Small Tube) TP Not Given BID CHING Divalproex Sodium 500 mg 02/20/17 10:00 03/13/17 09:48 Depakote - PO 500 mg BID CHING Administration Eucalyptus/Menthol/Phenol/Sorbitol 1 each 02/11/17 16:49 Cepastat Lozenge - MM Q4H PRN SORE THROAT Guaifenesin 10 ml 02/11/17 16:49 Robitussin Dm - PO Q6H PRN COUGH Ibuprofen 400 mg 02/11/17 16:49 02/15/17 10:38 Motrin - PO 400 mg Q6H PRN Administration SEVERE PAIN Levetiracetam 500 mg 02/25/17 10:30 03/13/17 09:48 Keppra - PO 500 mg BID CHING Administration Loperamide HCl 4 mg 02/11/17 16:49 Imodium - PO Q6H PRN DIARRHEA Magnesium Citrate 300 ml 02/11/17 16:49 Citroma - PO Q48H PRN CONSTIPATION Magnesium Hydroxide 30 ml 02/11/17 16:49 Milk Of Magnesia - PO DAILY PRN CONSTIPATION Nicotine 14 mg 02/11/17 19:00 03/13/17 09:49 Nicoderm Patch - TD 14 mg DAILY CHING Administration Nicotine Polacrilex 2 mg 02/11/17 16:49 Nicorette Gum - BC Q2H PRN NICOTINE REPLACEMENT RX Multivit/Folic Acid/Iron 1 tab 02/12/17 10:00 03/13/17 09:48 Vitamins (Sjr) - PO 1 tab DAILY CHING Administration Pseudoephedrine/Triprolidine 1 combo 02/11/17 16:49 Actifed - PO TID PRN NASAL CONGESTION Sertraline HCl 50 mg 02/12/17 10:43 03/13/17 09:49 Zoloft - PO 50 mg DAILY CHING Administration Thiamine HCl 100 mg 02/11/17 22:00 03/12/17 21:28 Vitamin B1 - PO 100 mg HS CHING Administration Medication(s) Change(s): Discontinue Belsomra and start Trazadone 150 mg po HS Current Side Effect: No Lab tests ordered: Yes Lab tests reviewed: Yes Provider note:: Reports that he has slept poorly last night after taking Belsomra. Requests and insists to have that Trazadone be reordered so he could resume taking it tonight Total face to face time:: 15 Mental Status Exam - Mental Status Exam Alert and Oriented to: Time, Place, Person Cognitive Function: Fair Patient Appearance: Well Groomed Mood: Hopeful, Euthymic Affect: Appropriate Patient Behavior: Cooperative Speech Pattern: Clear Voice Loudness: Normal Thought Process: Intact, Goal Oriented Thought Disorder: Not Present Hallucinations: Denies Suicidal Ideation: Denies Homicidal Ideation: Denies Insight/Judgement: Fair Sleep: Poorly Appetite: Good Muscle strength/Tone: Normal Gait/Station: Normal Psychiatric Treatment Plan - Problem List (1) Alcohol dependence Current Visit: Yes (2) Nicotine dependence Current Visit: Yes (3) Bipolar disorder Current Visit: Yes Qualifiers: Active/Remission status: remission status unspecified Qualified Code(s): F31.9 - Bipolar disorder, unspecified (4) Alcohol-induced sleep disorder Current Visit: Yes (5) Alcohol related seizure Current Visit: Yes (6) Hx of Falk's palsy Current Visit: No Initial treatment plan: 1) Discontinue Belsomra. 2) Start Trazadone 150 mg po HS for insomnia. 3) Monitor progress
[2017-03-13] MEDS: THIAMINE HCL 100 MG TABLET (FP) PO SCH (21:12)
[2017-03-13] MEDS: traZODone HCL 50 MG TABLET (FP) PO SCH (21:12)
[2017-03-14] MEDS: SERTRALINE HCL 50 MG TABLET (FP) PO SCH (09:37)
[2017-03-14] MEDS: NICOTINE 14 MG/24 HOURS TOPICAL PATCH TD SCH (09:37)
[2017-03-14] MEDS: PRENATAL VITAMINS W/ FOLIC ACID TABLET (FP) PO SCH (09:37)
[2017-03-14] MEDS: DIVALPROEX SODIUM 500 MG TABLET E.C. PO SCH ×2 (09:37→21:18)
[2017-03-14] MEDS: levETIRAcetam 500 MG TABLET (FP) PO SCH ×2 (09:37→21:18)
[2017-03-14] MEDS: CLOTRIMAZOLE/BETAMET DIPROP 15 GM TUBE TP SCH ×2 (09:38→21:19)
[2017-03-14] MEDS: THIAMINE HCL 100 MG TABLET (FP) PO SCH (21:18)
[2017-03-14] MEDS: traZODone HCL 50 MG TABLET (FP) PO SCH (21:18)
--- NOTE | 2017-03-15 07:13 | PN ---
Psychiatric Progress Note Vital Signs: Vital Signs Period Temp Pulse Resp BP Sys/Awad Pulse Ox Last 24 Hr 97.6 F 59 18-18 98/64 Date of Session: 03/15/17 Chief Complaint:: Discharge Note HPI: Patient addressing Alcohol Dependence comorbid with Nicotine Dependence, Bipolar Disorder and Alcohol-induced Sleep Disorder ROS: Alcohol-related seizure, history of Falk's palsy Current Medications: Active Medications Generic Name Dose Route Start Last Admin Trade Name Freq PRN Reason Stop Dose Admin Acetaminophen 650 mg 02/11/17 16:49 Tylenol - PO Q4H PRN FEVER OR PAIN Al Hydroxide/Mg Hydroxide 30 ml 02/11/17 16:49 Mylanta Oral Suspension - PO Q6H PRN DYSPEPSIA Albuterol/Ipratropium 1 amp 02/23/17 15:57 Duoneb - NEB Q4H PRN SHORTNESS OF BREATH Artificial Tears 1 drop 03/02/17 10:49 03/09/17 09:35 Artificial Tears OU 1 drop BID PRN Administration DRY EYES Clotrimazole 1 applic 02/18/17 13:59 03/14/17 21:19 Lotrisone Cream (Small Tube) TP Not Given BID CHING Divalproex Sodium 500 mg 02/20/17 10:00 03/14/17 21:18 Depakote - PO 500 mg BID CHING Administration Eucalyptus/Menthol/Phenol/Sorbitol 1 each 02/11/17 16:49 Cepastat Lozenge - MM Q4H PRN SORE THROAT Guaifenesin 10 ml 02/11/17 16:49 Robitussin Dm - PO Q6H PRN COUGH Ibuprofen 400 mg 02/11/17 16:49 02/15/17 10:38 Motrin - PO 400 mg Q6H PRN Administration SEVERE PAIN Levetiracetam 500 mg 02/25/17 10:30 03/14/17 21:18 Keppra - PO 500 mg BID CHING Administration Loperamide HCl 4 mg 02/11/17 16:49 Imodium - PO Q6H PRN DIARRHEA Magnesium Citrate 300 ml 02/11/17 16:49 Citroma - PO Q48H PRN CONSTIPATION Magnesium Hydroxide 30 ml 02/11/17 16:49 Milk Of Magnesia - PO DAILY PRN CONSTIPATION Nicotine 14 mg 02/11/17 19:00 03/14/17 09:37 Nicoderm Patch - TD 14 mg DAILY CHING Administration Nicotine Polacrilex 2 mg 02/11/17 16:49 Nicorette Gum - BC Q2H PRN NICOTINE REPLACEMENT RX Multivit/Folic Acid/Iron 1 tab 02/12/17 10:00 03/14/17 09:37 Vitamins (Sjr) - PO 1 tab DAILY CHING Administration Pseudoephedrine/Triprolidine 1 combo 02/11/17 16:49 Actifed - PO TID PRN NASAL CONGESTION Sertraline HCl 50 mg 02/12/17 10:43 03/14/17 09:37 Zoloft - PO 50 mg DAILY CHING Administration Thiamine HCl 100 mg 02/11/17 22:00 03/14/17 21:18 Vitamin B1 - PO 100 mg HS CHING Administration Trazodone HCl 150 mg 03/13/17 22:00 03/14/17 21:18 Desyrel - PO 150 mg HS CHING Administration Current Side Effect: No Lab tests ordered: Yes Lab tests reviewed: Yes Provider note:: Patient will be complete this program on 03/16/17. He has met his treatment goals and will continue to address his issues in skilled nursing inpatient treatment at [facility] at [address] [place] [id number]. Told ghost writer that from his participation in this program, he has learned the importance of establishing a sober support network in order to maintain abstinence. He responded well to Zoloft 50 mg po daily, Depakote 500 mg po BID and Trazadone 150 mg po HS. Scripts for 30 days supply of these medications will be electronically transmitted to [facility] at [address] [place] [address]. He is stable for discharge on 03/16/17 Total face to face time:: 35 Mental Status Exam - Mental Status Exam Alert and Oriented to: Time, Place, Person Cognitive Function: Fair Patient Appearance: Well Groomed Mood: Hopeful, Euthymic Affect: Appropriate Patient Behavior: Cooperative Speech Pattern: Clear Voice Loudness: Normal Thought Process: Intact, Goal Oriented Thought Disorder: Not Present Hallucinations: Denies Suicidal Ideation: Denies Homicidal Ideation: Denies Insight/Judgement: Fair Sleep: Fair Appetite: Good Muscle strength/Tone: Normal Gait/Station: Normal Psychiatric Treatment Plan - Problem List (1) Alcohol dependence Current Visit: Yes (2) Nicotine dependence Current Visit: Yes (3) Bipolar disorder Current Visit: Yes Qualifiers: Active/Remission status: remission status unspecified Qualified Code(s): F31.9 - Bipolar disorder, unspecified (4) Alcohol-induced sleep disorder Current Visit: Yes (5) Alcohol related seizure Current Visit: Yes (6) Hx of Falk's palsy Current Visit: No Initial treatment plan: Patient will be discharged tomorrow and referred to [facility] for for skilled nursing inpatient treatment
[2017-03-15] MEDS: PRENATAL VITAMINS W/ FOLIC ACID TABLET (FP) PO SCH (09:48)
[2017-03-15] MEDS: SERTRALINE HCL 50 MG TABLET (FP) PO SCH (09:48)
[2017-03-15] MEDS: levETIRAcetam 500 MG TABLET (FP) PO SCH ×2 (09:48→21:13)
[2017-03-15] MEDS: DIVALPROEX SODIUM 500 MG TABLET E.C. PO SCH ×2 (09:48→21:13)
[2017-03-15] MEDS: CLOTRIMAZOLE/BETAMET DIPROP 15 GM TUBE TP SCH ×2 (09:49→21:13)
[2017-03-15] MEDS: NICOTINE 14 MG/24 HOURS TOPICAL PATCH TD SCH (09:49)
[2017-03-15] MEDS: traZODone HCL 50 MG TABLET (FP) PO SCH (21:13)
[2017-03-15] MEDS: THIAMINE HCL 100 MG TABLET (FP) PO SCH (21:13)
[2017-03-16 07:00] VITALS: BP 102/65; PULSE 76; TEMP 97.3
[2017-03-16] MEDS: SERTRALINE HCL 50 MG TABLET (FP) PO SCH (09:37)
[2017-03-16] MEDS: levETIRAcetam 500 MG TABLET (FP) PO SCH (09:37)
[2017-03-16] MEDS: DIVALPROEX SODIUM 500 MG TABLET E.C. PO SCH (09:37)
[2017-03-16] MEDS: NICOTINE 14 MG/24 HOURS TOPICAL PATCH TD SCH (09:38)
[2017-03-16] MEDS: PRENATAL VITAMINS W/ FOLIC ACID TABLET (FP) PO SCH (09:38)
[2017-03-16] MEDS: CLOTRIMAZOLE/BETAMET DIPROP 15 GM TUBE TP SCH (09:38)
== END 2017-03-16 09:45 | disposition home or self-care (01) | DRG 895 ==
LOC: YASAS 12:22 → Y3N 18:39 → Y3W 02-16 09:48
PROVIDERS: ADMIT Internal Medicine; ATTEND Psychiatry & Neurology Psychiatry
PROC: HZ2ZZZZ Detoxification Services for Substance Abuse Treatment (ICD-10-PCS; principal; 2017-02-11)
PROC: HZ42ZZZ Group Counseling for Substance Abuse Treatment, Cognitive-Behavioral (ICD-10-PCS; 2017-02-16)
DX: F11.20 Opioid dependence, uncomplicated (principal); F14.20 Cocaine dependence, uncomplicated; F17.210 Nicotine dependence, cigarettes, uncomplicated; F10.282 Alcohol dependence with alcohol-induced sleep disorder; F19.24 Other psychoactive substance dependence with psychoactive substance-induced mood disorder; F31.9 Bipolar disorder, unspecified; R19.7 Diarrhea, unspecified; K21.9 Gastro-esophageal reflux disease without esophagitis; M41.9 Scoliosis, unspecified; Z86.69 Personal history of other diseases of the nervous system and sense organs; Z91.5 Personal history of self-harm; Z59.0 Homelessness
CPT/HCPCS: 36415; 71010-TC; 80053; 80164; 81003; 85025; 86593; 87070; 87205; 87389; 90688; 90732; 93005; 93010; 94640; G0008; G0009

== ENCOUNTER 2018-11-07 14:37 | Inpatient (IN) | payer BC, OTHER ==
[2018-11-07 15:07] VITALS: BMI 19.2
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
[2018-11-07] MEDS ORDERED: chlordiazePOXIDE HCL 25 MG CAPSULE PO PRN (16:16)
[2018-11-07] MEDS ORDERED: BISMUTH SUBSALICYLATE 524 MG/30 ML UD PO PRN (16:16)
[2018-11-07] MEDS ORDERED: MAGNESIUM CITRATE 300 ML BOTTLE PO PRN (16:16)
[2018-11-07] MEDS ORDERED: NICOTINE POLACRILEX 2 MG GUM BUC PRN (16:16)
[2018-11-07] MEDS ORDERED: IBUPROFEN 400 MG TABLET (FP) PO PRN (16:16)
[2018-11-07] MEDS ORDERED: MAG HYDROX/AL HYDROX/SIMETH 30 ML UNIT-DOSE CUP PO PRN (16:16)
[2018-11-07] MEDS ORDERED: MENTHOL/PHENOL 1 EACH UD MM PRN (16:16)
[2018-11-07] MEDS ORDERED: ACETAMINOPHEN 325 MG TABLET (FP) PO PRN ×2 (16:16)
[2018-11-07] MEDS ORDERED: MAGNESIUM HYDROX 2400MG/30ML ORAL SUSPENSION 30 ML CUP PO PRN (16:16)
[2018-11-07] MEDS ORDERED: hydrOXYzine HCL 25 MG TABLET (FP) PO PRN (16:16)
[2018-11-07] MEDS ORDERED: METHOCARBAMOL 500 MG TABLET PO PRN (16:16)
[2018-11-07] MEDS: chlordiazePOXIDE HCL 25 MG CAPSULE PO SCH (18:01)
[2018-11-07] MEDS: NICOTINE 21 MG/24 HOURS TOPICAL PATCH TD SCH (18:04)
[2018-11-07] MEDS: MELATONIN 5 MG TABLETS PO PRN (22:23)
[2018-11-07] MEDS: THIAMINE HCL 100 MG TABLET (FP) PO SCH (22:23)
[2018-11-07] MEDS: chlordiazePOXIDE HCL 10 MG CAPSULE PO SCH (22:23)
[2018-11-08] MEDS ORDERED: chlordiazePOXIDE 5 MG CAPSULE ONE (04:20)
[2018-11-08] MEDS: chlordiazePOXIDE HCL 10 MG CAPSULE PO SCH (06:37)
--- NOTE | 2018-11-08 10:12 | PN ---
S CIWA - CIWA Score Nausea/Vomitin-No Nausea/No Vomiting Muscle Tremors: 3 Anxiety: 2 Agitation: 2 Paroxysmal Sweats: 3 Orientation: 0-Oriented Tacttile Disturbances: 0-None Auditory Disturbances: 0-None Visual Disturbances: 0-None Headache: 0-None Present CIWA-Ar Total Score: 10 [facility] Progress Note (SOAP) Subjective: sweats shakes interrupted sleep body aches Objective: 11/08/18 10:11 Vital Signs Temperature 98.2 F 11/08/18 09:23 Pulse Rate 66 11/08/18 09:23 Respiratory Rate 16 11/08/18 09:23 Blood Pressure 116/72 11/08/18 09:23 O2 Sat by Pulse Oximetry (%) labs pending aaox3 ambulating no acute distress Assessment: 11/08/18 10:12 withdrawal sx Plan: continue detox increase fluids pending labs
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
[2018-11-08] MEDS: chlordiazePOXIDE HCL 25 MG CAPSULE PO SCH ×3 (10:28→22:19)
[2018-11-08] MEDS: PRENATAL VITAMINS W/ FOLIC ACID TABLET (FP) PO SCH (10:28)
[2018-11-08] MEDS: NICOTINE 21 MG/24 HOURS TOPICAL PATCH TD SCH (10:28)
[2018-11-08 10:53] LABS: HEMATOCRIT 39.5 % (35.4-49); HEMOGLOBIN 13.3 GM/dL (11.7-16.9); MCHC 33.7 g/dl (32.0-35.9); MEAN CELL VOLUME 98.1 fl (80-96); MEAN PLT VOLUME 8.4 fl (7.5-11.1); PLATELET COUNT 223 K/MM3 (134-434); RBC 4.03 M/mm3 (4.00-5.60); RDW 13.9 % (11.9-15.9); WHITE BLOOD COUNT 5.5 K/mm3 (4.0-10.0)
[2018-11-08 11:05] LABS: ALBUMIN 3.2 g/dl (3.4-5.0); BILIRUBIN,TOTAL 0.4 mg/dL (0.2-1); BLOOD UREA NITROGEN 15.6 mg/dL (7-18); CALCIUM 9.1 mg/dL (8.5-10.1); CREATININE 0.8 mg/dL (0.55-1.3); POTASSIUM 4.2 mmol/L (3.5-5.1); TOT PROT 5.8 g/dl (6.4-8.2)
[2018-11-08] MEDS: MELATONIN 5 MG TABLETS PO PRN (22:20)
[2018-11-08] MEDS: THIAMINE HCL 100 MG TABLET (FP) PO SCH (22:20)
[2018-11-09] MEDS: chlordiazePOXIDE HCL 25 MG CAPSULE PO SCH ×3 (06:06→16:47)
[2018-11-09] MEDS: NICOTINE 21 MG/24 HOURS TOPICAL PATCH TD SCH (11:06)
[2018-11-09] MEDS: PRENATAL VITAMINS W/ FOLIC ACID TABLET (FP) PO SCH (11:06)
--- NOTE | 2018-11-09 11:27 | PN ---
S CIWA - CIWA Score Nausea/Vomitin-No Nausea/No Vomiting Muscle Tremors: 3 Anxiety: 1-Mildly Anxious Agitation: 2 Paroxysmal Sweats: 2 Orientation: 0-Oriented Tacttile Disturbances: 0-None Auditory Disturbances: 0-None Visual Disturbances: 0-None Headache: 0-None Present CIWA-Ar Total Score: 8 S Progress Note (SOAP) Subjective: sweats mild shakes tired Objective: 11/09/18 11:26 Vital Signs Temperature 97.5 F L 11/09/18 09:32 Pulse Rate 76 11/09/18 09:32 Respiratory Rate 18 11/09/18 09:32 Blood Pressure 108/74 11/09/18 09:32 O2 Sat by Pulse Oximetry (%) Laboratory Tests 11/08/18 11/08/18 11/08/18 07:00 07:00 07:00 WBC 5.5 RBC 4.03 Hgb 13.3 Hct 39.5 MCV 98.1 H MCH 33.0 MCHC 33.7 RDW 13.9 Plt Count 223 D MPV 8.4 Sodium 142 Potassium 4.2 Chloride 106 Carbon Dioxide 30 Anion Gap 6 L BUN 15.6 Creatinine 0.8 Est GFR (CKD-EPI)AfAm 122.43 Est GFR (CKD-EPI)NonAf 105.63 Random Glucose 119 H Calcium 9.1 Total Bilirubin 0.4 AST 20 ALT 19 Alkaline Phosphatase 59 Total Protein 5.8 L Albumin 3.2 L RPR Titer Nonreactive labs noted aaox3 ambulating no acute distress Assessment: 11/09/18 11:26 withdrawal sx Plan: continue detox increase fluids
[2018-11-09 17:37] VITALS: BP 102/59; PULSE 53; TEMP 97.9
--- NOTE | 2018-11-09 20:56 | DS ---
[facility] Detox Discharge Summary Admission Date: 11/07/18 Discharge Date: 11/09/18 - History Present History: Alcohol Dependence Additional Comments: Admitted w/ alcohol withdrawal requesting detox. Pertinent Past History: Hx: alcohol related seizure last 2016 MHHx: bipolar disorder - Physical Exam Results Vital Signs: Vital Signs Temperature 97.9 F 11/09/18 17:24 Pulse Rate 53 L 11/09/18 17:24 Respiratory Rate 18 11/09/18 17:24 Blood Pressure 102/59 L 11/09/18 17:24 O2 Sat by Pulse Oximetry (%) Pertinent Admission Physical Exam Findings: Admitted w/ symptoms alcohol withdrawal to detox. Laboratory Last Values WBC 5.5 K/mm3 (4.0-10.0) 11/08/18 07:00 RBC 4.03 M/mm3 (4.00-5.60) 11/08/18 07:00 Hgb 13.3 GM/dL (11.7-16.9) 11/08/18 07:00 Hct 39.5 % (35.4-49) 11/08/18 07:00 MCV 98.1 fl (80-96) H 11/08/18 07:00 MCH 33.0 pg (25.7-33.7) 11/08/18 07:00 MCHC 33.7 g/dl (32.0-35.9) 11/08/18 07:00 RDW 13.9 % (11.9-15.9) 11/08/18 07:00 Plt Count 223 K/MM3 (134-434) D 11/08/18 07:00 MPV 8.4 fl (7.5-11.1) 11/08/18 07:00 Sodium 142 mmol/L (136-145) 11/08/18 07:00 Potassium 4.2 mmol/L (3.5-5.1) 11/08/18 07:00 Chloride 106 mmol/L (98-107) 11/08/18 07:00 Carbon Dioxide 30 mmol/L (21-32) 11/08/18 07:00 Anion Gap 6 MMOL/L (8-16) L 11/08/18 07:00 BUN 15.6 mg/dL (7-18) 11/08/18 07:00 Creatinine 0.8 mg/dL (0.55-1.3) 11/08/18 07:00 Est GFR (CKD-EPI)AfAm 122.43 11/08/18 07:00 Est GFR (CKD-EPI)NonAf 105.63 11/08/18 07:00 Random Glucose 119 mg/dL (74-106) H 11/08/18 07:00 Calcium 9.1 mg/dL (8.5-10.1) 11/08/18 07:00 Total Bilirubin 0.4 mg/dL (0.2-1) 11/08/18 07:00 AST 20 U/L (15-37) 11/08/18 07:00 ALT 19 U/L (13-61) 11/08/18 07:00 Alkaline Phosphatase 59 U/L (45-117) 11/08/18 07:00 Total Protein 5.8 g/dl (6.4-8.2) L 11/08/18 07:00 Albumin 3.2 g/dl (3.4-5.0) L 11/08/18 07:00 RPR Titer Nonreactive (NONREACTIVE) 11/08/18 07:00 Labs reviewed. - Treatment Hospital Course: Detox Protocol Followed (Tolerated detox protocol but did not complete.), Discharged Condition Good (Alert and oriented on discharge. Mild tremors of hands noted. Discussed the presense of withdrawal symptoms and need to continue detox.) - Medication Discharge Medications: Ambulatory Orders NK [No Known Home Medication] 11/07/18 - Diagnosis (1) Alcohol dependence with uncomplicated withdrawal Status: Acute (2) History of left shoulder fracture Status: Chronic (3) Nicotine dependence Status: Chronic Qualifiers: Nicotine product type: cigarettes Substance use status: uncomplicated Qualified Code(s): F17.210 - Nicotine dependence, cigarettes, uncomplicated - AMA Did Patient Leave Against Medical Advice: Yes (Refused to stay and left AMA. )
[2018-11-10] MEDS ORDERED: chlordiazePOXIDE HCL 10 MG CAPSULE PO PRN
[2018-11-10] MEDS ORDERED: chlordiazePOXIDE HCL 10 MG CAPSULE PO SCH (05:00)
[2018-11-11] MEDS ORDERED: chlordiazePOXIDE HCL 10 MG CAPSULE PO SCH (05:00)
[2018-11-12] MEDS ORDERED: chlordiazePOXIDE HCL 10 MG CAPSULE PO ONE (05:00)
== END 2018-11-09 18:48 | disposition left against medical advice (07) | DRG 894 ==
LOC: YASAS 14:37 → Y6N 16:21
PROVIDERS: ADMIT Surgery; ATTEND Allergy & Immunology
PROC: HZ2ZZZZ Detoxification Services for Substance Abuse Treatment (ICD-10-PCS; principal; 2018-11-07)
DX: F10.230 Alcohol dependence with withdrawal, uncomplicated (principal); F10.280 Alcohol dependence with alcohol-induced anxiety disorder; F10.282 Alcohol dependence with alcohol-induced sleep disorder; F17.210 Nicotine dependence, cigarettes, uncomplicated; F31.9 Bipolar disorder, unspecified; K21.9 Gastro-esophageal reflux disease without esophagitis; M41.20 Other idiopathic scoliosis, site unspecified; R29.6 Repeated falls; Z86.69 Personal history of other diseases of the nervous system and sense organs; Z87.19 Personal history of other diseases of the digestive system; Z59.0 Homelessness
CPT/HCPCS: 36415; 80053; 85027; 86593

== ENCOUNTER 2023-02-28 18:48 | Inpatient (IN) | payer OTHER ==
[2023-02-28 19:27] VITALS: BMI 18.4
[2023-02-28] MEDS ORDERED: IBUPROFEN 400 MG TABLET (FP) PO PRN (19:44)
[2023-02-28] MEDS ORDERED: IBUPROFEN 600 MG TABLET (FP) PO PRN (19:44)
[2023-02-28] MEDS ORDERED: MAG HYDROX/AL HYDROX/SIMETH 30 ML UNIT-DOSE CUP PO PRN (19:44)
[2023-02-28] MEDS ORDERED: DICYCLOMINE HCL 10 MG CAPSULE PO PRN (19:44)
[2023-02-28] MEDS ORDERED: ACETAMINOPHEN 325 MG TABLET (FP) PO PRN (19:44)
[2023-02-28] MEDS ORDERED: NALOXONE HCL 0.4 MG/ML VIAL IM PRN (19:44)
[2023-02-28] MEDS ORDERED: guaiFENesin 600 MG TABLET.ER (FP) PO PRN (19:44)
[2023-02-28] MEDS ORDERED: BENZONATATE 200 MG CAPSULE PO PRN (19:44)
[2023-02-28] MEDS ORDERED: POLYETHYLENE GLYCOL (HEALTHYLAX) 3350 17 GM PACKET PO PRN (19:44)
[2023-02-28] MEDS ORDERED: BISMUTH SUBSALICYLATE 524 MG/30 ML PO PRN (19:44)
[2023-02-28] MEDS ORDERED: MAGNESIUM HYDROX 2400MG/30ML ORAL SUSPENSION 30 ML CUP PO PRN (19:44)
[2023-02-28] MEDS ORDERED: ONDANSETRON *ODT* 4 MG TABLET SL PRN (19:44)
[2023-02-28] MEDS ORDERED: NALOXONE HCL (KLOXXADO) 8 MG SPRAY NS PRN (19:44)
[2023-02-28] MEDS ORDERED: LOPERAMIDE HCL 2 MG CAPSULE PO PRN (19:44)
[2023-02-28] MEDS ORDERED: BENZOCAINE/MENTHOL (CHLORASEPTIC ) LOZENGE MM PRN (19:44)
[2023-02-28] MEDS ORDERED: chlordiazePOXIDE HCL 25 MG CAPSULE PO ONE (19:50)
[2023-02-28] MEDS ORDERED: chlordiazePOXIDE HCL 25 MG CAPSULE PO PRN (19:50)
[2023-02-28] MEDS ORDERED: chlordiazePOXIDE HCL 25 MG CAPSULE ONE (20:02)
[2023-03-01] MEDS: MELATONIN 5 MG TABLETS PO SCH ×2 (00:02→22:05)
[2023-03-01] MEDS: THIAMINE HCL 100 MG TABLET (FP) PO SCH ×2 (00:04→22:05)
[2023-03-01] MEDS: chlordiazePOXIDE HCL 25 MG CAPSULE PO SCH ×5 (00:04→22:05)
[2023-03-01] MEDS: NICOTINE 21 MG/24 HOURS TOPICAL PATCH TD SCH (10:31)
[2023-03-01] MEDS: PRENATAL VITAMINS W/ FOLIC ACID TABLET (FP) PO SCH (10:31)
[2023-03-01 10:56] LABS: HEMATOCRIT 38.8 % (35.4-49); MCHC 33.5 g/dl (32.0-35.9); MEAN CELL VOLUME 95.3 fl (80-96); MEAN PLT VOLUME 8.1 fl (7.5-11.1); PLATELET COUNT 181 10^3/uL (134-434); RBC 4.07 M/mm3 (4.00-5.60); RDW 14.9 % (11.9-15.9); WHITE BLOOD COUNT 5.7 K/mm3 (4.0-10.0)
[2023-03-01 11:01] LABS: CHLORIDE 106 mmol/L (98-107); POTASSIUM 3.8 mmol/L (3.5-5.1); SODIUM 140 mmol/L (136-145)
[2023-03-01 11:03] LABS: CALCIUM 8.1 mg/dL (8.5-10.1)
[2023-03-01 11:04] LABS: ALBUMIN 2.9 g/dl (3.4-5.0); ANION GAP 4 mmol/L (4-13); CO2 29 mmol/L (21-32); GLUCOSE,RANDOM 163 mg/dL (74-106)
[2023-03-01 11:07] LABS: CREATININE 0.7 mg/dL (0.55-1.3); SGOT/AST 53 U/L (15-37); SGPT/ALT 40 U/L (13-61)
[2023-03-01 11:08] LABS: BILIRUBIN,TOTAL 0.5 mg/dL (0.2-1); TOT PROT 5.3 g/dl (6.4-8.2)
[2023-03-01 11:10] LABS: ALK PHOS 44 U/L (45-117)
[2023-03-01] MEDS: NICOTINE POLACRILEX 2 MG GUM BUC PRN (13:48)
[2023-03-01] MEDS: QUEtiapine FUMARATE 100 MG TABLET (FP) PO SCH (22:05)
[2023-03-02] MEDS: chlordiazePOXIDE HCL 25 MG CAPSULE PO SCH ×4 (05:50→22:15)
[2023-03-02] MEDS: PRENATAL VITAMINS W/ FOLIC ACID TABLET (FP) PO SCH (10:26)
[2023-03-02] MEDS: NICOTINE 21 MG/24 HOURS TOPICAL PATCH TD SCH (10:29)
[2023-03-02] MEDS: MELATONIN 5 MG TABLETS PO SCH (22:15)
[2023-03-02] MEDS: QUEtiapine FUMARATE 100 MG TABLET (FP) PO SCH (22:15)
[2023-03-02] MEDS: THIAMINE HCL 100 MG TABLET (FP) PO SCH (22:16)
[2023-03-03] MEDS ORDERED: chlordiazePOXIDE HCL 10 MG CAPSULE PO PRN
[2023-03-03] MEDS: chlordiazePOXIDE HCL 10 MG CAPSULE PO SCH ×4 (05:25→22:09)
[2023-03-03] MEDS: NICOTINE 21 MG/24 HOURS TOPICAL PATCH TD SCH (10:09)
[2023-03-03] MEDS: PRENATAL VITAMINS W/ FOLIC ACID TABLET (FP) PO SCH (10:09)
[2023-03-03] MEDS: QUEtiapine FUMARATE 100 MG TABLET (FP) PO SCH (22:09)
[2023-03-03] MEDS: THIAMINE HCL 100 MG TABLET (FP) PO SCH (22:09)
[2023-03-03] MEDS: MELATONIN 5 MG TABLETS PO SCH (22:09)
[2023-03-04] MEDS: chlordiazePOXIDE HCL 10 MG CAPSULE PO SCH ×2 (05:38→18:52)
[2023-03-04] MEDS: PRENATAL VITAMINS W/ FOLIC ACID TABLET (FP) PO SCH (10:13)
[2023-03-04] MEDS: NICOTINE 21 MG/24 HOURS TOPICAL PATCH TD SCH (10:25)
[2023-03-04] MEDS: NICOTINE POLACRILEX 2 MG GUM BUC PRN ×2 (14:39→19:47)
[2023-03-04] MEDS: MELATONIN 5 MG TABLETS PO SCH (22:12)
[2023-03-04] MEDS: THIAMINE HCL 100 MG TABLET (FP) PO SCH (22:12)
[2023-03-04] MEDS: QUEtiapine FUMARATE 100 MG TABLET (FP) PO SCH (22:12)
[2023-03-05] MEDS ORDERED: chlordiazePOXIDE HCL 10 MG CAPSULE PO ONE (05:00)
[2023-03-05] MEDS: NICOTINE 21 MG/24 HOURS TOPICAL PATCH TD SCH (09:18)
[2023-03-05] MEDS: PRENATAL VITAMINS W/ FOLIC ACID TABLET (FP) PO SCH (09:18)
[2023-03-05 11:41] VITALS: BP 111/64; PULSE 90; RESP 18; TEMP 97.7
== END 2023-03-05 09:20 | disposition home or self-care (01) | DRG 897 ==
LOC: YASAS 18:48 → Y3N 19:59
PROVIDERS: ADMIT Allergy & Immunology; ATTEND Surgery
PROC: HZ2ZZZZ Detoxification Services for Substance Abuse Treatment (ICD-10-PCS; principal; 2023-02-28)
DX: F10.230 Alcohol dependence with withdrawal, uncomplicated (principal); F10.282 Alcohol dependence with alcohol-induced sleep disorder; F19.24 Other psychoactive substance dependence with psychoactive substance-induced mood disorder; F31.9 Bipolar disorder, unspecified; F41.9 Anxiety disorder, unspecified; K21.9 Gastro-esophageal reflux disease without esophagitis; R22.2 Localized swelling, mass and lump, trunk; R29.6 Repeated falls; Z87.19 Personal history of other diseases of the digestive system; Z86.69 Personal history of other diseases of the nervous system and sense organs
CPT/HCPCS: 36415; 80053; 80307; 83036; 85027; 86780; 87635; 93005; 93010